=== PATIENT | female | born 1960 | race Caucasian/White ===

== ENCOUNTER 2018-06-03 11:05 | Outpatient (CLI) | payer OTHER ==
[~2018-06-03 11:05] MED LIST: IBUP-1985 PO
[2018-06-03 12:21] LABS: BASOPHILS % (AUTO) 0.4 % (0-1); EOSINOPHILS # (AUTO) 0.3 X10'3 (0-0.9); EOSINOPHILS % (AUTO) 5.5 % (0-6); HEMATOCRIT 38.8 % (35.0-45.0); HEMOGLOBIN 12.9 g/dl (12.0-16.0); LYMPHOCYTES # (AUTO) 1.6 X10'3 (1.1-4.8); LYMPHOCYTES % (AUTO) 28.8 % (21-51); MEAN CORPUSCULAR HEMOGLOBIN 27.9 PG (27.0-31.0); MEAN CORPUSCULAR HGB CONC 33.2 % (33.0-36.5); MEAN CORPUSCULAR VOLUME 84.2 FL (78-98); MEAN PLATELET VOLUME 7.1 FL (7.4-10.4); MONOCYTES # (AUTO) 0.4 X10'3 (0-0.9); MONOCYTES % (AUTO) 7.8 % (2-12); NEUTROPHILS # (AUTO) 3.1 X10'3 (1.8-7.7); NEUTROPHILS % (AUTO) 57.5 % (42-75); PLATELET COUNT 298 X10'3 (140-440); RED BLOOD COUNT 4.61 X10'6 (4.20-5.60); RED CELL DISTRIBUTION WIDTH 12.5 % (11.5-14.5); WHITE BLOOD COUNT 5.4 X10'3 (4.5-11.0)
[2018-06-03 12:33] LABS: ALANINE AMINOTRANSFERASE 33 U/L (12-78); ALBUMIN 3.9 G/DL (3.4-5.0); ALBUMIN/GLOBULIN RATIO 1.1 (1.1-1.5); ALKALINE PHOSPHATASE 69 IU/L (46-116); ANION GAP 7 (8-16); ASPARTATE AMINO TRANSFERASE 21 U/L (10-37); BILIRUBIN,TOTAL 0.3 MG/DL (0.1-1.0); BLOOD UREA NITROGEN 17 MG/DL (7-18); BUN/CREATININE RATIO 19.8 (6.6-38.0); CALCIUM 9.9 MG/DL (8.5-10.1); CHLORIDE 103 MMOL/L (99-107); CREATININE 0.86 MG/DL (0.40-0.90); GLUCOSE 99 MG/DL (70-104); POTASSIUM 4.3 MMOL/L (3.5-5.1); SODIUM 141 MMOL/L (135-145); TOTAL CARBON DIOXIDE 30.8 MMOL/L (24-32); TOTAL PROTEIN 7.5 G/DL (6.4-8.2); eGFR 67 ML/MIN
[2018-06-03 12:36] LABS: CLARITY,URINE CLEAR (Clear); COLOR,URINE YELLOW (Yellow); GLUCOSE, URINE NEGATIVE (Neg); KETONES,URINE NEGATIVE (Neg); LEUKOCYTE ESTERASE ,URINE TRACE (Neg); NITRITES, URINE NEGATIVE (Neg); OCCULT BLOOD,URINE NEGATIVE (Neg); PROTEIN,URINE NEGATIVE (Neg); UA COLLECTION TYPE CLN CATCH MIDSTREAM; UROBILINOGEN,URINE 0.2 E.U/dL (0.2-1.0)
[2018-06-03 12:42] LABS: CHOL/HDL RATIO 4.3 (0.00-4.99); CHOLESTEROL 200 MG/DL (0-200); HDL CHOLESTEROL 46 MG/DL (35-60); LDL CHOLESTEROL 131 MG/DL (50-100); TRIGLYCERIDES 161 MG/DL (20-135)
[2018-06-03 12:43] LABS: BACTERIA,URINE FEW /HPF (Neg); RBC,URINE 0-2 /HPF (0-2); SQUAMOUS EPITHELIAL CELL,UR FEW /LPF (FEW); WBC,URINE 0-4 /HPF (0-4)
== END 2018-06-03 23:59 | disposition home or self-care (01) ==
LOC: LAB 11:05
PROVIDERS: ATTEND Family Medicine
DX: E11.9 Type 2 diabetes mellitus without complications (principal); E03.9 Hypothyroidism, unspecified; I10 Essential (primary) hypertension; F32.9 Major depressive disorder, single episode, unspecified; F17.200 Nicotine dependence, unspecified, uncomplicated; Z76.89 Persons encountering health services in other specified circumstances; Z79.4 Long term (current) use of insulin
CPT/HCPCS: 36415; 80053; 80061; 81001; 84439; 84443; 85025

== ENCOUNTER 2018-08-23 15:28 | Emergency (ER) | payer OTHER ==
[~2018-08-23] VITALS: Ht 167.6 cm; Wt 88.2 kg
[2018-08-23] MEDS ORDERED: ketorolac trometh inj. 60 MG/2 ML VIAL IM ONE (15:50)
[2018-08-23] MEDS ORDERED: HYDROcodone/acetaminophen 10/325mg tab PO ONE (15:50)
[2018-08-23] MEDS ORDERED: orphenadrine citrate 60mg/2ml inj. IM ONE (15:50)
[2018-08-23] MEDS ORDERED: HYDR-4353 PO (15:53)
[2018-08-23] MEDS ORDERED: ORPH100T2 PO (15:53)
[2018-08-23 17:53] VITALS: BP 122/68
== END 2018-08-23 18:10 | disposition home or self-care (01) ==
LOC: ER 15:29
DX: M54.5 Low back pain (principal); F17.200 Nicotine dependence, unspecified, uncomplicated; Z79.899 Other long term (current) drug therapy; X50.9XXA Other and unspecified overexertion or strenuous movements or postures, initial encounter; Y93.89 Activity, other specified; Y92.89 Other specified places as the place of occurrence of the external cause; Y99.8 Other external cause status
CPT/HCPCS: 96372; 99284; J1885; J2360

== ENCOUNTER 2018-09-03 15:16 | Outpatient (CLI) | payer OTHER ==
[~2018-09-03 15:16] MED LIST changes: +HYDR-4353 PO; +ORPH100T2 PO
== END 2018-09-03 23:59 | disposition home or self-care (01) ==
LOC: LAB 15:16
PROVIDERS: ATTEND Family Medicine
DX: E03.9 Hypothyroidism, unspecified (principal); F17.200 Nicotine dependence, unspecified, uncomplicated
CPT/HCPCS: 36415; 84439; 84443

== ENCOUNTER 2018-11-25 08:38 | Outpatient (CLI) | payer OTHER ==
[~2018-11-25 08:38] MED LIST changes: -HYDR-4353 PO
== END 2018-11-25 23:59 | disposition home or self-care (01) ==
LOC: LAB 08:38
PROVIDERS: ATTEND Family Medicine
DX: E03.9 Hypothyroidism, unspecified (principal)
CPT/HCPCS: 36415; 84439; 84443

== ENCOUNTER → 2019-01-02 | Outpatient (CLI) | payer OTHER ==
[2019-01-02 14:45] LABS: BASOPHILS % (AUTO) 0.8 % (0-1); EOSINOPHILS # (AUTO) 0.2 X10'3 (0-0.9); EOSINOPHILS % (AUTO) 4.6 % (0-6); HEMATOCRIT 37.4 % (35.0-45.0); HEMOGLOBIN 12.5 g/dl (12.0-16.0); LYMPHOCYTES # (AUTO) 1.3 X10'3 (1.1-4.8); LYMPHOCYTES % (AUTO) 25.9 % (21-51); MEAN CORPUSCULAR HEMOGLOBIN 27.9 PG (27.0-31.0); MEAN CORPUSCULAR HGB CONC 33.3 g/dL (33.0-36.5); MEAN CORPUSCULAR VOLUME 83.7 FL (78-98); MEAN PLATELET VOLUME 7.5 FL (7.4-10.4); MONOCYTES # (AUTO) 0.4 X10'3 (0-0.9); MONOCYTES % (AUTO) 7.2 % (2-12); NEUTROPHILS # (AUTO) 3.2 X10'3 (1.8-7.7); NEUTROPHILS % (AUTO) 61.5 % (42-75); PLATELET COUNT 292 X10'3 (140-440); RED BLOOD COUNT 4.47 X10'6 (4.20-5.60); WHITE BLOOD COUNT 5.1 X10'3 (4.5-11.0)
[2019-01-02 15:12] LABS: ALANINE AMINOTRANSFERASE 36 U/L (12-78); ALBUMIN 3.8 G/DL (3.4-5.0); ALBUMIN/GLOBULIN RATIO 1.1 (1.1-1.5); ALKALINE PHOSPHATASE 61 IU/L (46-116); ANION GAP 7 (8-16); ASPARTATE AMINO TRANSFERASE 18 U/L (10-37); BILIRUBIN,TOTAL 0.2 MG/DL (0.1-1.0); BLOOD UREA NITROGEN 16 MG/DL (7-18); BUN/CREATININE RATIO 18.6 (6.6-38.0); CALCIUM 9.6 MG/DL (8.5-10.1); CHLORIDE 106 MMOL/L (99-107); CHOL/HDL RATIO 3.2 (0.00-4.99); CHOLESTEROL 143 MG/DL (0-200); CREATININE 0.86 MG/DL (0.40-0.90); GLUCOSE 91 MG/DL (70-104); HDL CHOLESTEROL 45 MG/DL (35-60); LDL CHOLESTEROL 81 MG/DL (50-100); POTASSIUM 4.4 MMOL/L (3.5-5.1); SODIUM 142 MMOL/L (135-145); TOTAL CARBON DIOXIDE 28.9 MMOL/L (24-32); TOTAL PROTEIN 7.3 G/DL (6.4-8.2); TRIGLYCERIDES 138 MG/DL (20-135); eGFR 67 ML/MIN
[2019-01-04 08:19] LABS: MICROALB/CRT, RATIO 5.4 mg/g creat (0.0-30.0)
== END | disposition home or self-care (01) ==
LOC: RAD 13:03
PROVIDERS: ATTEND Family Medicine
DX: M47.812 Spondylosis without myelopathy or radiculopathy, cervical region (principal); M48.061 Spinal stenosis, lumbar region without neurogenic claudication; M51.36 Other intervertebral disc degeneration, lumbar region; M41.86 Other forms of scoliosis, lumbar region; M54.41 Lumbago with sciatica, right side; M25.511 Pain in right shoulder; I10 Essential (primary) hypertension; E11.9 Type 2 diabetes mellitus without complications; E78.5 Hyperlipidemia, unspecified; F17.210 Nicotine dependence, cigarettes, uncomplicated; Z91.89 Other specified personal risk factors, not elsewhere classified; Z79.4 Long term (current) use of insulin
CPT/HCPCS: 36415; 72050; 72110; 73030; 80053; 80061; 82043; 82570; 84436; 84443; 85025

== ENCOUNTER 2019-05-15 20:08 | Emergency (ER) | payer OTHER ==
[~2019-05-15] VITALS: Ht 167.6 cm; Wt 82.0 kg
[2019-05-15 20:11] VITALS: BP 163/101
== END 2019-05-15 20:49 | disposition home or self-care (01) ==
LOC: EEVIPCON 20:08 → ER 20:08
DX: S09.90XA Unspecified injury of head, initial encounter (principal); G89.29 Other chronic pain; Z98.890 Other specified postprocedural states; Z79.899 Other long term (current) drug therapy; W22.8XXA Striking against or struck by other objects, initial encounter; Y93.89 Activity, other specified; Y92.89 Other specified places as the place of occurrence of the external cause; Y99.8 Other external cause status
CPT/HCPCS: 99284

== ENCOUNTER 2019-06-17 13:12 | Outpatient (CLI) | payer OTHER | END 2019-06-17 23:59 | disposition home or self-care (01) | LOC: RAD 13:12 | PROVIDERS: ATTEND Family Medicine | DX: S79.912A Unspecified injury of left hip, initial encounter (principal); Z96.643 Presence of artificial hip joint, bilateral; Z87.891 Personal history of nicotine dependence; W19.XXXA Unspecified fall, initial encounter; Y93.89 Activity, other specified; Y92.89 Other specified places as the place of occurrence of the external cause; Y99.8 Other external cause status | CPT/HCPCS: 73721 ==

== ENCOUNTER 2019-10-06 10:52 | Outpatient (CLI) | payer OTHER | END 2019-10-06 23:59 | disposition home or self-care (01) | LOC: RAD 10:52 | PROVIDERS: ATTEND Family Medicine | DX: J06.9 Acute upper respiratory infection, unspecified (principal) | CPT/HCPCS: 71046 ==

== ENCOUNTER 2020-01-27 12:21 | Outpatient (CLI) | payer BC | END 2020-01-27 23:59 | disposition home or self-care (01) | LOC: RAD 12:21 | PROVIDERS: ATTEND Family Medicine | DX: S46.811A Strain of other muscles, fascia and tendons at shoulder and upper arm level, right arm, initial encounter (principal); S43.081A Other subluxation of right shoulder joint, initial encounter; X58.XXXA Exposure to other specified factors, initial encounter; Y93.89 Activity, other specified; Y92.89 Other specified places as the place of occurrence of the external cause; Y99.8 Other external cause status | CPT/HCPCS: 73221 ==

== ENCOUNTER 2020-02-23 09:47 | Outpatient (CLI) | payer BC | END 2020-02-23 23:59 | disposition home or self-care (01) | LOC: LAB 09:47 | PROVIDERS: ATTEND Family Medicine | DX: R19.7 Diarrhea, unspecified (principal) | CPT/HCPCS: 87045; 87046 ==

== ENCOUNTER 2020-02-27 20:43 | Emergency (ER) | payer BC ==
[~2020-02-27] VITALS: Ht 167.6 cm; Wt 86.4 kg
[2020-02-27] MEDS ORDERED: DICY10CA88 PO (23:03)
[2020-02-27] MEDS ORDERED: LOPE2CAP PO (23:03)
[2020-02-27 23:12] VITALS: BP 125/75
== END 2020-02-27 23:27 | disposition home or self-care (01) ==
LOC: EEVIPCON 20:43 → ER 20:43
DX: R19.7 Diarrhea, unspecified (principal); R10.13 Epigastric pain; G89.29 Other chronic pain; E11.9 Type 2 diabetes mellitus without complications; Z79.899 Other long term (current) drug therapy; Z98.890 Other specified postprocedural states
CPT/HCPCS: 99283; 99284

== ENCOUNTER 2020-04-12 09:21 | Outpatient (CLI) | payer BC ==
[~2020-04-12 09:21] MED LIST changes: +LOPE2CAP PO
[2020-04-12 10:45] LABS: BASOPHILS # (AUTO) 0.1 X10'3 (0-0.2); BASOPHILS % (AUTO) 0.9 % (0-1); EOSINOPHILS # (AUTO) 0.4 X10'3 (0-0.9); EOSINOPHILS % (AUTO) 7.3 % (0-6); HEMATOCRIT 36.6 % (35.0-45.0); HEMOGLOBIN 12.1 g/dl (12.0-16.0); LYMPHOCYTES # (AUTO) 2.3 X10'3 (1.1-4.8); MEAN CORPUSCULAR HGB CONC 33.1 g/dL (33.0-36.5); MEAN CORPUSCULAR VOLUME 84.5 FL (78-98); MEAN PLATELET VOLUME 7.3 FL (7.4-10.4); MONOCYTES # (AUTO) 0.6 X10'3 (0-0.9); MONOCYTES % (AUTO) 9.5 % (2-12); NEUTROPHILS # (AUTO) 2.6 X10'3 (1.8-7.7); NEUTROPHILS % (AUTO) 43.3 % (42-75); PLATELET COUNT 278 X10'3 (140-440); RED BLOOD COUNT 4.33 X10'6 (4.20-5.60); RED CELL DISTRIBUTION WIDTH 13.5 % (11.5-14.5); WHITE BLOOD COUNT 5.9 X10'3 (4.5-11.0)
[2020-04-12 11:06] LABS: CLARITY,URINE SLIGHTLY CLOUDY (Clear); COLOR,URINE YELLOW (Yellow); GLUCOSE, URINE NEGATIVE (Neg); KETONES,URINE NEGATIVE (Neg); LEUKOCYTE ESTERASE ,URINE SMALL (Neg); NITRITES, URINE NEGATIVE (Neg); OCCULT BLOOD,URINE NEGATIVE (Neg); PH,URINE 5.5 (4.8-8.0); PROTEIN,URINE NEGATIVE (Neg); UA COLLECTION TYPE CLN CATCH MIDSTREAM; UROBILINOGEN,URINE 0.2 E.U/dL (0.2-1.0)
[2020-04-12 11:17] LABS: ALANINE AMINOTRANSFERASE 33 U/L (12-78); ALBUMIN 3.8 G/DL (3.4-5.0); ALBUMIN/GLOBULIN RATIO 1.1 (1.1-1.5); ALKALINE PHOSPHATASE 45 IU/L (46-116); ANION GAP 6 (8-16); ASPARTATE AMINO TRANSFERASE 23 U/L (10-37); BILIRUBIN,TOTAL 0.2 MG/DL (0.1-1.0); BLOOD UREA NITROGEN 18 MG/DL (7-18); BUN/CREATININE RATIO 20.2 (6.6-38.0); CALCIUM 9.8 MG/DL (8.5-10.1); CHLORIDE 102 MMOL/L (99-107); CHOL/HDL RATIO 2.8 (0.00-4.99); CHOLESTEROL 121 MG/DL (0-200); CREATININE 0.89 MG/DL (0.40-0.90); GLUCOSE 79 MG/DL (70-104); HDL CHOLESTEROL 43 MG/DL (35-60); LDL CHOLESTEROL 59 MG/DL (50-100); SODIUM 139 MMOL/L (135-145); TOTAL CARBON DIOXIDE 30.6 MMOL/L (24-32); TOTAL PROTEIN 7.2 G/DL (6.4-8.2); TRIGLYCERIDES 185 MG/DL (20-135); eGFR 64 ML/MIN
[2020-04-12 11:27] LABS: MUCUS STRANDS FEW /LPF (Neg); SQUAMOUS EPITHELIAL CELL,UR FEW /LPF (FEW)
[2020-04-12 11:29] LABS: BACTERIA,URINE FEW /HPF (Neg); RBC,URINE 0-2 /HPF (0-2); TRANSITIONAL EPI CELLS,URINE FEW /HPF; WBC,URINE 0-4 /HPF (0-4)
== END 2020-04-12 23:59 | disposition home or self-care (01) ==
LOC: LAB 09:21
PROVIDERS: ATTEND Family Medicine
DX: I10 Essential (primary) hypertension (principal); E11.9 Type 2 diabetes mellitus without complications; E78.5 Hyperlipidemia, unspecified; E03.9 Hypothyroidism, unspecified; F32.9 Major depressive disorder, single episode, unspecified; F17.210 Nicotine dependence, cigarettes, uncomplicated; Z79.4 Long term (current) use of insulin; Z76.89 Persons encountering health services in other specified circumstances; Z91.89 Other specified personal risk factors, not elsewhere classified
CPT/HCPCS: 36415; 80053; 80061; 81001; 84439; 84443; 85025

== ENCOUNTER 2020-05-11 14:48 | Outpatient (CLI) | payer BC ==
[2020-05-11 15:51] LABS: RHEUM FACTOR QUAL REFLEX TITER NEGATIVE (Neg)
== END 2020-05-11 23:59 | disposition home or self-care (01) ==
LOC: LAB 14:48
PROVIDERS: ATTEND Family Medicine
DX: R53.83 Other fatigue (principal)
CPT/HCPCS: 36415; 85651; 86038; 86140; 86430

== ENCOUNTER 2020-10-13 12:48 | Emergency (ER) | payer BC, OTHER ==
[~2020-10-13] VITALS: Ht 167.6 cm; Wt 87.7 kg
[2020-10-13] MEDS ORDERED: normal saline 1000ml 1,000 ML IV ONE (14:05)
[2020-10-13] MEDS ORDERED: clindamycin 600mg/D5W 50ml 50 ML IV ONE (14:05)
[2020-10-13 14:22] VITALS: BP 113/68
[2020-10-13 14:33] LABS: BASOPHILS # (AUTO) 0.1 X10'3 (0-0.2); BASOPHILS % (AUTO) 0.5 % (0-1); EOSINOPHILS # (AUTO) 0.6 X10'3 (0-0.9); EOSINOPHILS % (AUTO) 4.7 % (0-6); HEMATOCRIT 35.8 % (35.0-45.0); HEMOGLOBIN 11.9 g/dl (12.0-16.0); LYMPHOCYTES # (AUTO) 1.8 X10'3 (1.1-4.8); LYMPHOCYTES % (AUTO) 15.2 % (21-51); MEAN CORPUSCULAR HEMOGLOBIN 27.7 PG (27.0-31.0); MEAN CORPUSCULAR HGB CONC 33.1 g/dL (33.0-36.5); MEAN CORPUSCULAR VOLUME 83.5 FL (78-98); MEAN PLATELET VOLUME 7.2 FL (7.4-10.4); MONOCYTES # (AUTO) 0.9 X10'3 (0-0.9); MONOCYTES % (AUTO) 7.4 % (2-12); NEUTROPHILS # (AUTO) 8.5 X10'3 (1.8-7.7); NEUTROPHILS % (AUTO) 72.2 % (42-75); PLATELET COUNT 334 X10'3 (140-440); RED BLOOD COUNT 4.29 X10'6 (4.20-5.60); RED CELL DISTRIBUTION WIDTH 12.3 % (11.5-14.5); WHITE BLOOD COUNT 11.8 X10'3 (4.5-11.0)
[2020-10-13 14:58] LABS: ALANINE AMINOTRANSFERASE 32 U/L (12-78); ALBUMIN 3.2 G/DL (3.4-5.0); ALBUMIN/GLOBULIN RATIO 0.8 (1.1-1.5); ALKALINE PHOSPHATASE 79 IU/L (46-116); ANION GAP 11 (8-16); ASPARTATE AMINO TRANSFERASE 16 U/L (10-37); BILIRUBIN,TOTAL 0.2 MG/DL (0.1-1.0); BLOOD UREA NITROGEN 21 MG/DL (7-18); BUN/CREATININE RATIO 22.6 (6.6-38.0); CALCIUM 9.5 MG/DL (8.5-10.1); CHLORIDE 96 MMOL/L (99-107); CREATININE 0.93 MG/DL (0.40-0.90); GLUCOSE 361 MG/DL (70-104); POTASSIUM 4.2 MMOL/L (3.5-5.1); SODIUM 134 MMOL/L (135-145); TOTAL CARBON DIOXIDE 27.3 MMOL/L (24-32); TOTAL PROTEIN 7.4 G/DL (6.4-8.2); eGFR 61 ML/MIN
[2020-10-13] MEDS ORDERED: insulin regular, human 10 units/0.1 ml syringe IV ONE (15:15)
[2020-10-13] MEDS ORDERED: CLIN150C8 PO (15:17)
== END 2020-10-13 15:33 | disposition home or self-care (01) ==
LOC: EEVIPCON 12:48 → ER 12:48
DX: L03.115 Cellulitis of right lower limb (principal); E11.9 Type 2 diabetes mellitus without complications; G89.29 Other chronic pain; Z98.890 Other specified postprocedural states; Z79.2 Long term (current) use of antibiotics; Z79.899 Other long term (current) drug therapy
CPT/HCPCS: 36415; 80053; 82948; 84145; 85025; 93971; 96365; 96375; 99284; J1815; J7030; J3490

== ENCOUNTER 2021-06-16 15:59 | Outpatient (CLI) | payer BC ==
[~2021-06-16 15:59] MED LIST changes: +CLIN150C8 PO
[2021-06-16 16:50] LABS: BASOPHILS % (AUTO) 0.5 % (0-1); EOSINOPHILS # (AUTO) 0.4 X10'3 (0-0.9); EOSINOPHILS % (AUTO) 5.5 % (0-6); HEMATOCRIT 38.1 % (35.0-45.0); HEMOGLOBIN 12.9 g/dl (12.0-16.0); LYMPHOCYTES # (AUTO) 2.2 X10'3 (1.1-4.8); LYMPHOCYTES % (AUTO) 31.7 % (21-51); MEAN CORPUSCULAR HEMOGLOBIN 27.8 PG (27.0-31.0); MEAN CORPUSCULAR VOLUME 81.8 FL (78-98); MEAN PLATELET VOLUME 7.2 FL (7.4-10.4); MONOCYTES # (AUTO) 0.6 X10'3 (0-0.9); MONOCYTES % (AUTO) 9.2 % (2-12); NEUTROPHILS # (AUTO) 3.7 X10'3 (1.8-7.7); NEUTROPHILS % (AUTO) 53.1 % (42-75); PLATELET COUNT 277 X10'3 (140-440); RED BLOOD COUNT 4.66 X10'6 (4.20-5.60); RED CELL DISTRIBUTION WIDTH 12.8 % (11.5-14.5); WHITE BLOOD COUNT 6.9 X10'3 (4.5-11.0)
[2021-06-16 16:57] LABS: CLARITY,URINE CLEAR (Clear); COLOR,URINE YELLOW (Yellow); GLUCOSE, URINE NEGATIVE (Neg); KETONES,URINE NEGATIVE (Neg); LEUKOCYTE ESTERASE ,URINE SMALL (Neg); NITRITES, URINE NEGATIVE (Neg); OCCULT BLOOD,URINE NEGATIVE (Neg); PH,URINE 5.5 (4.8-8.0); PROTEIN,URINE NEGATIVE (Neg); UA COLLECTION TYPE CLN CATCH MIDSTREAM; UROBILINOGEN,URINE 0.2 E.U/dL (0.2-1.0)
[2021-06-16 17:02] LABS: BACTERIA,URINE FEW /HPF (Neg); HYALINE CASTS 0-3 /LPF (NEGATIVE); MUCUS STRANDS NONE SEEN /LPF (Neg); RBC,URINE NONE SEEN /HPF (0-2); SQUAMOUS EPITHELIAL CELL,UR FEW /LPF (FEW); WBC,URINE 0-4 /HPF (0-4)
[2021-06-16 17:09] LABS: HEMOGLOBIN A1C 6.5 % (4.5-6.2)
[2021-06-16 17:13] LABS: ALANINE AMINOTRANSFERASE 34 U/L (12-78); ALBUMIN/GLOBULIN RATIO 1.1 (1.1-1.5); ALKALINE PHOSPHATASE 58 IU/L (46-116); ANION GAP 10 (8-16); ASPARTATE AMINO TRANSFERASE 22 U/L (10-37); BILIRUBIN,TOTAL 0.3 MG/DL (0.1-1.0); BLOOD UREA NITROGEN 25 MG/DL (7-18); BUN/CREATININE RATIO 22.5 (6.6-38.0); CALCIUM 9.5 MG/DL (8.5-10.1); CHLORIDE 103 MMOL/L (99-107); CHOL/HDL RATIO 2.9 (0.00-4.99); CHOLESTEROL 125 MG/DL (0-200); CREATININE 1.11 MG/DL (0.40-0.90); GLUCOSE 149 MG/DL (70-104); HDL CHOLESTEROL 43 MG/DL (35-60); LDL CHOLESTEROL 59 MG/DL (50-100); POTASSIUM 4.7 MMOL/L (3.5-5.1); SODIUM 139 MMOL/L (135-145); TOTAL PROTEIN 7.5 G/DL (6.4-8.2); TRIGLYCERIDES 211 MG/DL (20-135); eGFR 50 ML/MIN
[2021-06-19 09:50] LABS: MICROALB/CRT, RATIO <5 mg/g creat (0-29)
== END 2021-06-16 23:59 | disposition home or self-care (01) ==
LOC: LAB 15:59
PROVIDERS: ATTEND Family Medicine
DX: Z00.00 Encounter for general adult medical examination without abnormal findings (principal)
CPT/HCPCS: 36415; 80053; 80061; 81001; 82043; 82570; 83036; 84439; 84443; 85025; 87088

== ENCOUNTER 2021-07-12 08:43 | Outpatient (CLI) | payer BC | END 2021-07-12 23:59 | disposition home or self-care (01) | LOC: LAB 08:43 | PROVIDERS: ATTEND Family Medicine | DX: Z00.01 Encounter for general adult medical examination with abnormal findings (principal); E11.9 Type 2 diabetes mellitus without complications; E03.9 Hypothyroidism, unspecified | CPT/HCPCS: 36415; 82043; 82570; 84439; 84443 ==

== ENCOUNTER 2021-08-27 13:20 | Emergency (ER) | payer BC ==
[~2021-08-27] VITALS: Ht 162.6 cm; Wt 80.0 kg
[2021-08-27 13:59] VITALS: BP 114/69
[2021-08-27] MEDS ORDERED: LIDOcaine 1% 30ml preserv. free vial IJ ONE (15:55)
--- NOTE | 2021-08-27 17:20 | NUR ---
PT SEEN, DC AND TREATED BY PA
== END 2021-08-27 17:21 | disposition home or self-care (01) ==
LOC: ER 13:20
DX: M54.6 Pain in thoracic spine (principal); M62.830 Muscle spasm of back; E11.9 Type 2 diabetes mellitus without complications; G89.29 Other chronic pain; Z79.2 Long term (current) use of antibiotics; Z79.899 Other long term (current) drug therapy
CPT/HCPCS: 20552; 20553; 99284

== ENCOUNTER 2021-08-30 15:19 | Outpatient (CLI) | payer BC | END 2021-08-30 23:59 | disposition home or self-care (01) | LOC: RAD 15:19 | PROVIDERS: ATTEND Physician Assistant | DX: M41.84 Other forms of scoliosis, thoracic region (principal); M43.8X4 Other specified deforming dorsopathies, thoracic region | CPT/HCPCS: 72074 ==

== ENCOUNTER 2023-04-17 03:56 | Inpatient (IN) | payer MEDICARE, MEDICAID ==
[~2023-04-17] VITALS: Ht 165.1 cm; Wt 93.2 kg
[2023-04-17] VITALS (15 sets, daily range): BP systolic 109–132; BP diastolic 47–64; PULSE 94–102; RESP 12–20; TEMP 98–98.1; O2SAT 90–96
[~2023-04-17 03:56] MED LIST changes: +CLIN-214 PO; -CLIN150C8 PO; -ORPH100T2 PO; +ORPH100T4 PO
[2023-04-17] MEDS ORDERED: normal saline 1000ml 1,000 ML IV ONE ×2 (04:10→04:50)
[2023-04-17] MEDS ORDERED: ondansetron/PF 4mg/2ml inj IV ONE (04:10)
[2023-04-17] MEDS ORDERED: ketorolac trometh. 30mg/ml inj. IV ONE (04:10)
[2023-04-17] MEDS ORDERED: LEVO75TA7 PO (04:13)
[2023-04-17] MEDS ORDERED: DULA4.5P SQ (04:13)
[2023-04-17] MEDS ORDERED: METF-438 PO (04:13)
[2023-04-17] MEDS ORDERED: NOVLG SQ (04:13)
[2023-04-17] MEDS ORDERED: ONDA-103 PO (04:13)
[2023-04-17] MEDS ORDERED: DULO30CA52 PO (04:13)
[2023-04-17] MEDS ORDERED: MONT-40 PO (04:13)
[2023-04-17] MEDS ORDERED: DULO60CA65 PO (04:13)
[2023-04-17] MEDS ORDERED: MELO-102 PO (04:13)
[2023-04-17] MEDS ORDERED: EMPA25TA PO (04:13)
[2023-04-17] MEDS ORDERED: TRAZ-251 PO (04:13)
[2023-04-17] MEDS ORDERED: PANT20TA18 PO (04:13)
[2023-04-17] MEDS ORDERED: ATOR10TA70 PO (04:13)
[2023-04-17] MEDS ORDERED: LANTUS SQ (04:13)
[2023-04-17] MEDS ORDERED: LISI10TA27 PO (04:13)
[2023-04-17 04:29] LABS: BASOPHILS % (AUTO) 0.1 % (0-1); EOSINOPHILS # (AUTO) 0.1 X10'3 (0-0.9); EOSINOPHILS % (AUTO) 0.4 % (0-6); HEMATOCRIT 35.8 % (35.0-45.0); HEMOGLOBIN 11.5 g/dl (12.0-16.0); LYMPHOCYTES # (AUTO) 1.2 X10'3 (1.1-4.8); LYMPHOCYTES % (AUTO) 5.5 % (21-51); MEAN CORPUSCULAR HGB CONC 32.1 g/dL (33.0-36.5); MEAN CORPUSCULAR VOLUME 84.3 FL (78-98); MEAN PLATELET VOLUME 6.6 FL (7.4-10.4); MONOCYTES # (AUTO) 1.3 X10'3 (0-0.9); NEUTROPHILS # (AUTO) 18.7 X10'3 (1.8-7.7); PLATELET COUNT 370 X10'3 (140-440); RED BLOOD COUNT 4.25 X10'6 (4.20-5.60); RED CELL DISTRIBUTION WIDTH 13.7 % (11.5-14.5); WHITE BLOOD COUNT 21.3 X10'3 (4.5-11.0)
[2023-04-17 04:41] LABS: ALANINE AMINOTRANSFERASE 24 U/L (12-78); ALBUMIN/GLOBULIN RATIO 0.7 (1.1-1.5); ALKALINE PHOSPHATASE 71 IU/L (46-116); ANION GAP 11 (8-16); ASPARTATE AMINO TRANSFERASE 18 U/L (10-37); BILIRUBIN,TOTAL 0.5 MG/DL (0.1-1.0); BLOOD UREA NITROGEN 27 MG/DL (7-18); CALCIUM 9.6 MG/DL (8.5-10.1); CHLORIDE 92 MMOL/L (99-107); CREATININE 1.23 MG/DL (0.40-0.90); GLUCOSE 155 MG/DL (70-104); LIPASE < 50 U/L (73-393); SODIUM 129 MMOL/L (135-145); TOTAL CARBON DIOXIDE 25.6 MMOL/L (24-32); TOTAL PROTEIN 7.4 G/DL (6.4-8.2); eCRCL 41 ML/MIN; eGFR 44 ML/MIN
[2023-04-17] MEDS ORDERED: piperacillin/tazo 3.375gm/50ml 50 ML IV ONE (04:50)
[2023-04-17] MEDS ORDERED: bisacodyl 10mg suppository rectal RC PRN (05:00)
[2023-04-17] MEDS ORDERED: acetaminophen 325mg tablet PO PRN ×2 (05:00)
[2023-04-17] MEDS ORDERED: ondansetron 4mg rapidly disintigrating tab PO PRN (05:00)
[2023-04-17] MEDS ORDERED: diphenhydrAMINE 25mg capsule PO PRN (05:00)
[2023-04-17] MEDS ORDERED: HYDROcodone/acetaminophen 10/325mg tab PO PRN (05:00)
[2023-04-17] MEDS ORDERED: acetaminophen 650mg rectal suppository RC PRN (05:00)
[2023-04-17] MEDS ORDERED: morphine 2 MG/ML inj. syringe IV PRN ×2 (05:00→11:25)
[2023-04-17] MEDS ORDERED: diphenhydrAMINE 50 mg/ml inj IV PRN (05:00)
[2023-04-17] MEDS ORDERED: mag hydrox/Alum hydrox/simeth 30ml oral suspension PO PRN (05:00)
[2023-04-17] MEDS ORDERED: HYDROcodone/acetaminophen 5mg/325mg tablet PO PRN (05:00)
[2023-04-17] MEDS ORDERED: ondansetron/PF 4mg/2ml inj IV PRN ×2 (05:00→11:25)
[2023-04-17] MEDS ORDERED: magnesium hydroxide 30ml (MOM) UD suspension PO PRN (05:00)
[2023-04-17] MEDS ORDERED: dextrose 50%-water 50ml dispensing syringe IV PRN ×2 (05:05)
[2023-04-17] MEDS ORDERED: MESSAGE TO PHARMACY PO ONE (05:05)
[2023-04-17] MEDS ORDERED: glucagon, human recombinant 1mg kit SUBCUT PRN (05:05)
[2023-04-17] MEDS ORDERED: DEXTROSE 15 GM of carb/4 tabs (each vial/BOTTLE has 4 tablets) PO PRN ×2 (05:05)
[2023-04-17] MEDS: normal saline 1000ml 1,000 ML IV SCH ×3 (05:37→18:20)
[2023-04-17] MEDS: morphine 2 MG/ML inj. syringe IV PRN ×2 (05:37→12:01)
[2023-04-17 05:44] LABS: MAGNESIUM 2.4 MG/DL (1.5-2.4); PHOSPHORUS 2.5 MG/DL (2.3-4.5); PRO BRAIN NATRIURETIC PEPTIDE 374 PG/ML (0-125)
[2023-04-17 05:48] LABS: APTT 32 SECONDS (22-32); PROTHROMBIN TIME 10.8 SECONDS (9.0-12.0)
[2023-04-17] MEDS: HYDROmorphone inj. 0.5 MG/0.5 ML DISP.SYRIN IV PRN ×3 (06:14→14:10)
[2023-04-17 06:29] LABS: BILIRUBIN,URINE MODERATE (Neg); CLARITY,URINE SLIGHTLY CLOUDY (Clear); COLOR,URINE YELLOW (Yellow); GLUCOSE, URINE >=1000 mg/dl (Neg); KETONES,URINE >=80 mg/dl (Neg); LEUKOCYTE ESTERASE ,URINE NEGATIVE (Neg); NITRITES, URINE NEGATIVE (Neg); OCCULT BLOOD,URINE MODERATE (Neg); PH,URINE 5.5 (4.8-8.0); PROTEIN,URINE 100 mg/dl (Neg); UROBILINOGEN,URINE 0.2 E.U/dL (0.2-1.0)
[2023-04-17 06:52] LABS: UA COLLECTION TYPE CLN CATCH MIDSTREAM
[2023-04-17 06:54] LABS: SQUAMOUS EPITHELIAL CELL,UR MODERATE /LPF (FEW)
[2023-04-17 06:55] LABS: TRANSITIONAL EPI CELLS,URINE FEW /HPF
[2023-04-17 06:56] LABS: WBC CLUMPS,URINE FEW /HPF (NEGATIVE)
[2023-04-17 07:00] LABS: AMORPHOUS URATES 1+; BACTERIA,URINE FEW /HPF (Neg)
--- NOTE | 2023-04-17 07:09 | NUR ---
SURGEON DR. DE ANDA AT BEDSIDE DISCUSSING SURGERY WITH PT AND PTS SPOUSE.
[2023-04-17] MEDS ORDERED: docusate sod 100mg capsule PO SCH (08:00)
[2023-04-17] MEDS: pantoprazole 40MG/NS 100ML BAG 100 ML IV SCH (08:20)
[2023-04-17 09:14] LABS: HEMOGLOBIN A1C 6.2 % (4.5-6.2)
[2023-04-17] MEDS ORDERED: meperidine/PF 25mg/ml syringe IV PRN ×3 (11:25)
[2023-04-17] MEDS ORDERED: proCHLORperazine 10 MG/2 ml inj IV PRN (11:25)
[2023-04-17] MEDS ORDERED: ringers solution, lacted 1,000 ML IV SCH (11:25)
[2023-04-17] MEDS ORDERED: morphine 4 MG/ML inj SYRINge IV PRN (11:25)
[2023-04-17] MEDS: piperacillin/tazo 4.5gm/100ml 100 ML IV SCH ×2 (12:08→21:00)
[2023-04-17] MEDS ORDERED: traZODone 50mg tablet PO PRN (12:40)
[2023-04-17] MEDS ORDERED: dexamethasone sod phosphate 10mg/ml inj ONE (16:30)
[2023-04-17] MEDS ORDERED: ondansetron/PF 4mg/2ml inj ONE (16:30)
[2023-04-17] MEDS ORDERED: sevoflurane 250ml liquid IH ONE (16:30)
[2023-04-17] MEDS ORDERED: midazolam 1 mg/ML 2ml injection ONE (16:41)
[2023-04-17] MEDS ORDERED: fentaNYL /PF 50mcg/ml 5ml ampule ONE (16:41)
[2023-04-17] MEDS ORDERED: propofol inj 20 ML IV ONE (16:53)
[2023-04-17] MEDS ORDERED: LIDOcaine 2% (20mg/ml) 5ml vial ONE (16:53)
[2023-04-17] MEDS ORDERED: rocuronium 10mg/ml inj IV ONE (16:53)
[2023-04-17] MEDS ORDERED: LIDOcaine 1% 30ml preserv. free vial IJ ONE (16:59)
[2023-04-17] MEDS ORDERED: BUPIVAcaine/PF 2.5 mg/ml (0.25%) 30ml vial IJ ONE (16:59)
[2023-04-17] MEDS ORDERED: BUPIVAcaine/PF 2.5 mg/ml (0.25%) 30ml vial ONE (17:01)
[2023-04-17] MEDS ORDERED: LIDOcaine 1% 30ml preserv. free vial ONE (17:01)
[2023-04-17] MEDS ORDERED: BUPIVACAINE liposomal/PF 13.3 MG/ML vial IM ONE ×2 (18:09→19:00)
[2023-04-17] MEDS ORDERED: BUPIVAcaine/PF 5 mg/ml 10ml ONE (18:09)
[2023-04-17] MEDS ORDERED: acetaminophen 1,000mg/100ml IV 100 ML IV ONE (18:12)
--- NOTE | 2023-04-17 19:15 | NUR ---
Received from OR via HOSPITAL BED, accompanied by Anesthesiologist and report given by [facility] Anesthesiologist. PATIENT STILL SEDATED WITH ORAL AIRWAY, NO S/S OF PAIN, V/S WNL, SCD ON , PIV 20G RIGHT FOREARM, WOUNDVAC AT 125 MMHG C/D/I TO ABDOMEN. F/C DRAINING CLEAR YELLOW URINE. RIGHT NG TUBE CONNECTED TO LOW INTERMITTENT WALL SUCTION. LEFT LOWER QUADRANT COLOSTOMY. STOMA SITE IS MOIST AND PINK. WILL KEEP MONITORING. Addendum: 04/17/23 at 1931 by Santiago Cooley RN Amended: Links added.
[2023-04-17] MEDS ORDERED: normal saline 1000ml 1,000 ML IV SCH (19:30)
[2023-04-17] MEDS ORDERED: morphine/NS PCA 1mg/ml 50ml 50 ML IV SCH (19:30)
[2023-04-17] MEDS ORDERED: naloxone 0.4 mg/ml inj IV PRN (19:30)
--- NOTE | 2023-04-17 19:45 | NUR ---
Patient in room ORTHO 4011. I have received report from Luis Felipe SECOND MATE, and had the opportunity to ask questions and assume patient care.
[2023-04-17] MEDS: HYDROmorph/NS 0.2 mg/ml PCA 100 ML IV SCH ×3 (19:52→23:00)
[2023-04-17] MEDS: docusate sod 100mg capsule PO SCH (20:00)
[2023-04-17] MEDS: sennosides/docusate sodium tablet PO SCH (20:00)
--- NOTE | 2023-04-17 20:05 | NUR ---
PATIENT HAS MET ALL CRITERIA FOR TRANSFER TO ORTHO FLOOR. VSS. DRESSINGS INTACT. BED LOW, CALL LIGHT PRESENT AND 2 RAILS UP. RN PRESENT TO ACCEPT CARE OF PATIENT AND REPORT HAS BEEN CALLED. ALL QUESTIONS ANSWERED TO ACCEPTING RN. Addendum: 04/17/23 at 2007 by Santiago Cooley RN Amended: Links added.
--- NOTE | 2023-04-17 20:05 | NUR ---
pt. to floor via hospital bed accompanied by staff. pt. in bed, call light in reach, bed in low position, side rails upx2, NGT hooked to low continuous suction. pt. in stable condition. no complaints at this time. Will continue to monitor.
[2023-04-17] MEDS ORDERED: temazepam 15mg capsule PO PRN (21:00)
[2023-04-18] MEDS: normal saline 1000ml 1,000 ML IV SCH ×3 (01:00→14:20)
[2023-04-18] MEDS: HYDROmorph/NS 0.2 mg/ml PCA 100 ML IV SCH ×12 (01:00→23:00)
[2023-04-18 01:48] VITALS: BP 123/71; PULSE 97; RESP 16; TEMP 98.2; O2SAT 95
[2023-04-18] MEDS: piperacillin/tazo 4.5gm/100ml 100 ML IV SCH ×3 (03:46→20:14)
[2023-04-18] MEDS ORDERED: diphenhydrAMINE 50 mg/ml inj IV PRN (04:00)
--- NOTE | 2023-04-18 05:49 | NUR ---
moved pt to 4024A. Notified tele.
--- NOTE | 2023-04-18 06:16 | NUR ---
Problems reprioritized. Patient report given, questions answered & plan of care reviewed with MARLEY Naik.
[2023-04-18 06:41] LABS: BASOPHILS % (AUTO) 0 % (0-1); EOSINOPHILS % (AUTO) 0 % (0-6); HEMATOCRIT 37.7 % (35.0-45.0); HEMOGLOBIN 12.2 g/dl (12.0-16.0); LYMPHOCYTES # (AUTO) 0.6 X10'3 (1.1-4.8); LYMPHOCYTES % (AUTO) 4.3 % (21-51); MEAN CORPUSCULAR HEMOGLOBIN 27.8 PG (27.0-31.0); MEAN CORPUSCULAR HGB CONC 32.2 g/dL (33.0-36.5); MEAN CORPUSCULAR VOLUME 86.4 FL (78-98); MEAN PLATELET VOLUME 6.5 FL (7.4-10.4); NEUTROPHILS # (AUTO) 12.2 X10'3 (1.8-7.7); NEUTROPHILS % (AUTO) 88.7 % (42-75); PLATELET COUNT 398 X10'3 (140-440); RED BLOOD COUNT 4.37 X10'6 (4.20-5.60); RED CELL DISTRIBUTION WIDTH 14.2 % (11.5-14.5); WHITE BLOOD COUNT 13.7 X10'3 (4.5-11.0)
[2023-04-18 06:59] LABS: ALANINE AMINOTRANSFERASE 19 U/L (12-78); ALBUMIN/GLOBULIN RATIO 0.5 (1.1-1.5); ALKALINE PHOSPHATASE 55 IU/L (46-116); ANION GAP 19 (8-16); ASPARTATE AMINO TRANSFERASE 19 U/L (10-37); BILIRUBIN,TOTAL 0.6 MG/DL (0.1-1.0); BLOOD UREA NITROGEN 23 MG/DL (7-18); BUN/CREATININE RATIO 20.2 (10.0-20.0); CALCIUM 8.1 MG/DL (8.5-10.1); CHLORIDE 102 MMOL/L (99-107); CHOL/HDL RATIO 6.3 (0.00-4.99); CHOLESTEROL 75 MG/DL (0-200); CREATININE 1.14 MG/DL (0.40-0.90); GLUCOSE 157 MG/DL (70-104); HDL CHOLESTEROL 12 MG/DL (35-60); LDL CHOLESTEROL 23 MG/DL (50-100); POTASSIUM 4.3 MMOL/L (3.5-5.1); SODIUM 136 MMOL/L (135-145); TOTAL CARBON DIOXIDE 15.4 MMOL/L (24-32); TOTAL PROTEIN 5.8 G/DL (6.4-8.2); TRIGLYCERIDES 119 MG/DL (20-135); eCRCL 44 ML/MIN; eGFR 48 ML/MIN
[2023-04-18 07:00] VITALS: BP 130/85; PULSE 95; RESP 16; O2SAT 96
[2023-04-18] MEDS ORDERED: pantoprazole 40mg Tablet.DR PO SCH (08:00)
[2023-04-18] MEDS: sennosides/docusate sodium tablet PO SCH ×2 (09:24→20:14)
[2023-04-18] MEDS: montelukast 10mg tablet PO SCH (09:24)
[2023-04-18] MEDS: levoTHYROXINE 75mcg tablet PO SCH (09:24)
[2023-04-18] MEDS: duloxetine 30mg CAPSULE.DR PO SCH ×2 (09:25)
[2023-04-18] MEDS: lisinopril 10 MG tablet PO SCH (09:30)
[2023-04-18] MEDS: atorvastatin 10mg tablet PO SCH (09:30)
[2023-04-18] MEDS: docusate sod 100mg capsule PO SCH ×2 (09:41→20:14)
[2023-04-18 09:52] LABS: TOTAL CELLS COUNTED 100
[2023-04-18 10:00] VITALS: BP 130/77; PULSE 96; RESP 16; TEMP 98.4; O2SAT 94
[2023-04-18 10:01] LABS: PLATELET ESTIMATE NORMAL
[2023-04-18] MEDS: EMPAGLIFLOZIN 25 MG TABLET PO SCH (12:20)
[2023-04-18] MEDS: pantoprazole 40MG/NS 100ML BAG 100 ML IV SCH (12:20)
[2023-04-18] MEDS: HYDROmorphone inj. 0.5 MG/0.5 ML DISP.SYRIN IV PRN (13:48)
[2023-04-18 18:00] VITALS: BP 107/42; PULSE 95; RESP 12; O2SAT 93
[2023-04-18] MEDS: insulin Lispro (HumaLOG) vial - multi-dose SQ SCH (18:41)
--- NOTE | 2023-04-18 18:59 | NUR ---
Bailey Dc 1500hrs. patient hasnt voided at this time. bladder scanned 137mls observed. Ambulated 300ft around floors. minimal out put from wound vac. report given to candice ROACH
[2023-04-18] MEDS: enoxaparin 40mg/0.4ml syringe SUBCUT SCH (20:15)
[2023-04-18 21:00] VITALS: O2SAT 96
[2023-04-18 22:00] VITALS: BP 117/64; PULSE 104; RESP 13; TEMP 98.6; O2SAT 94
[2023-04-19] MEDS: HYDROmorph/NS 0.2 mg/ml PCA 100 ML IV SCH ×12 (01:00→23:00)
--- NOTE | 2023-04-19 02:24 | NUR ---
I have received report for Paloma ROACH and assumed care of pt at approx 0220. Pt is resting in bed with eyes closed, breathing even and unlabored. NG tube in place and on low cont suction. Wound vac currently running at 125 w/o issue. Will continue to monitor
[2023-04-19] MEDS: HYDROmorphone inj. 0.5 MG/0.5 ML DISP.SYRIN IV PRN (05:08)
[2023-04-19] MEDS: piperacillin/tazo 4.5gm/100ml 100 ML IV SCH ×3 (05:08→20:06)
[2023-04-19 06:00] VITALS: BP 139/69; PULSE 100; RESP 14; TEMP 97.2; O2SAT 93
[2023-04-19 06:16] LABS: BASOPHILS % (AUTO) 0.1 % (0-1); EOSINOPHILS % (AUTO) 0 % (0-6); HEMATOCRIT 35.2 % (35.0-45.0); HEMOGLOBIN 11.3 g/dl (12.0-16.0); LYMPHOCYTES # (AUTO) 0.5 X10'3 (1.1-4.8); LYMPHOCYTES % (AUTO) 3.9 % (21-51); MEAN CORPUSCULAR HEMOGLOBIN 27.6 PG (27.0-31.0); MEAN CORPUSCULAR HGB CONC 32.1 g/dL (33.0-36.5); MEAN CORPUSCULAR VOLUME 86.1 FL (78-98); MEAN PLATELET VOLUME 6.5 FL (7.4-10.4); MONOCYTES # (AUTO) 1.5 X10'3 (0-0.9); MONOCYTES % (AUTO) 10.8 % (2-12); NEUTROPHILS # (AUTO) 11.9 X10'3 (1.8-7.7); NEUTROPHILS % (AUTO) 85.2 % (42-75); PLATELET COUNT 506 X10'3 (140-440); RED BLOOD COUNT 4.08 X10'6 (4.20-5.60); RED CELL DISTRIBUTION WIDTH 14.4 % (11.5-14.5); WHITE BLOOD COUNT 13.9 X10'3 (4.5-11.0)
[2023-04-19 06:27] LABS: ALANINE AMINOTRANSFERASE 23 U/L (12-78); ALBUMIN/GLOBULIN RATIO 0.4 (1.1-1.5); ALKALINE PHOSPHATASE 65 IU/L (46-116); ANION GAP 13 (8-16); ASPARTATE AMINO TRANSFERASE 28 U/L (10-37); BILIRUBIN,TOTAL 0.3 MG/DL (0.1-1.0); BLOOD UREA NITROGEN 32 MG/DL (7-18); BUN/CREATININE RATIO 25.8 (10.0-20.0); CALCIUM 8.8 MG/DL (8.5-10.1); CHLORIDE 105 MMOL/L (99-107); CREATININE 1.24 MG/DL (0.40-0.90); GLUCOSE 189 MG/DL (70-104); POTASSIUM 4.3 MMOL/L (3.5-5.1); SODIUM 139 MMOL/L (135-145); TOTAL PROTEIN 6.5 G/DL (6.4-8.2); eCRCL 41 ML/MIN; eGFR 43 ML/MIN
--- NOTE | 2023-04-19 06:33 | NUR ---
Problems reprioritized. Patient report given, questions answered & plan of care reviewed with Becky ROACH.
[2023-04-19 06:51] LABS: TOTAL CELLS COUNTED 100
[2023-04-19 06:52] LABS: PLATELET ESTIMATE INCREASED
--- NOTE | 2023-04-19 06:53 | NUR ---
Patient in room ORTHO 4024. I have received report from Salty and had the opportunity to ask questions and assume patient care.
[2023-04-19] MEDS: normal saline 1000ml 1,000 ML IV SCH ×2 (07:30→20:50)
[2023-04-19] MEDS: duloxetine 30mg CAPSULE.DR PO SCH ×2 (08:00→09:10)
[2023-04-19 08:50] VITALS: RESP 14; O2SAT 93
[2023-04-19] MEDS: pantoprazole 40MG/NS 100ML BAG 100 ML IV SCH (09:05)
--- NOTE | 2023-04-19 09:05 | NUR ---
WOUND VAC EDUCATION PROVIDED BY WOUND CARE 1. Patient instructed to call the Wound Center or their Home Health Agency immediately if: * They notice a change in the color or amount of the fluid in the canister. * Their wound looks more red than usual or has a foul smell. * The skin around their wound looks reddened or irritated. * The dressing feels loose or appears to be loose. * They experience any increase or changes in their pain. * The alarm will not turn off. 2. Patient instructed that they should not be disconnected from suction for more than 2 hours at a time. * If they are not able to get the suction back on, they need to remove the dressing and take all of the foam out of the wound. * Then moisten sterile gauze with normal saline and place on/in the wound. * Change the dressing once a day until arrangements have been made to replace the wound vac dressing. 3. Patient instructed to turn the wound vac machine OFF and call 911 or go to the ED immediately if their canister fills rapidly with blood. 4. If any of these occur while in the hospital tell a nurse immediately. Addendum: 04/19/23 at 0906 by Stephanie Stanton LVN Amended: Links added.
[2023-04-19] MEDS: atorvastatin 10mg tablet PO SCH (09:10)
[2023-04-19] MEDS: EMPAGLIFLOZIN 25 MG TABLET PO SCH (09:10)
[2023-04-19] MEDS: docusate sod 100mg capsule PO SCH ×2 (09:10→20:06)
[2023-04-19] MEDS: sennosides/docusate sodium tablet PO SCH ×2 (09:11→20:06)
[2023-04-19] MEDS: lisinopril 10 MG tablet PO SCH (09:11)
[2023-04-19] MEDS: montelukast 10mg tablet PO SCH (09:11)
[2023-04-19] MEDS: levoTHYROXINE 75mcg tablet PO SCH (09:11)
[2023-04-19 10:00] VITALS: BP 144/72; PULSE 95; RESP 18; TEMP 98.5; O2SAT 91
[2023-04-19 14:10] LABS: THYROID STIMULATING HORMONE 4.59 ulU/ml (0.34-4.50)
--- NOTE | 2023-04-19 15:14 | NUR ---
OSTOMY FACTS: Almost everyone has know of, or met, businessmen, entertainers, athletes, and people from all walks of life who have an ostomy. Ostomates (a person that has an ostomy) can ski, ride horses, bowl, and get healthy exercise in countless ways. Your usual activities of daily living can be resumed as soon as you are able. Gradually you will be able to wear the clothes worn before surgery. With modern pouches, nothing is noticeable under your clothing. It may be difficult at first to believe that an intimate relationship can be possible when one's body has been disfigured by surgery. This is not true. Love, fortunately, is not easily destroyed when it is based on genuine appreciation of a person as a thinking, feeling, reacting human being. AN OSTOMY IS NOT AN IMPAIRMENT!! DEFINITIONS: 1.OSTOMY: An opening that is created by a surgical procedure. The opening is called a "stoma". 2.STOMA: A surgical opening in the abdomen (belly) where intestine is brought through the abdominal wall and connected at the skin level. A stoma is shiny, wet and at first is dark purple but eventually turns pink, similar to the inside lining of your mouth. 3.COLON: A portion of the large bowel. 4.COLOSTOMY: A fecal diversion with an opening, (stoma) created anywhere along the colon. Making a connection between the colon and the abdominal wall. 5.ILLEOSTOMY: A fecal diversion with an opening, (stoma) created in the small intestine. Making a connection between the small intestine and the abdominal wall. 6.UROSTOMY: A urinary diversion with the ureters connected to a segment of the small bowel and one end is brought out and connected to the abdominal wall, creating a stoma. SHAPES and SIZES: "The stoma is usually round or oval. "It is anywhere from a dime to half dollar in size. "A stoma reaches its permanent size 6-8 weeks after surgery. PRODUCTS: 1.POUCH or APPLIANCE: An external device to contain stool or urine output and protect the skin around the stoma. It can be a one piece pouch or two pieces (a pouch and a wafer). 2.BARRIER: Substance that is used to protect the skin around the stoma from drainage and adhesive. 3.SKIN PREP or SEALANT: Product applied to the skin to reduce injury from moisture, drainage, or repeated pouch removal. Available in spray or wipes. 4.CLOSURE or CLAMP: A device used to close the bottom of a drainable pouch. 5.BRIDGE or ARTURO: A piece of plastic placed under a loop of bowel on the skins surface, to secure the bowel in place while the skin heals. POUCH CHANGE PROCEEDURE: 1.Assemble all the supplies "1 or 2 piece appliance "Ostomy paste (if needed) "Ostomy powder (if needed) "Skin prep wipes ( not recommended with coloplast products) "Moist wash cloth or cotton balls 2.Remove plastic center and paper backing from pouch. If pouch or wafer is not precut, use the sizing guide, or plastic backing from pouch to make a pattern. Do this by placing the paper over the stoma and trace it, or draw a pattern. Cut the wafer to fit and set it aside. 3.Remove old pouch by lifting up on tape while pressing skin down away from the tape. If there is a clip on your pouch, remove it and save it. 4.Clean skin or stoma with moistened wash cloth or cotton balls. Place a clean cotton ball over stoma hole to catch any drainage. Let skin dry. 5.For grooves or uneven areas in the skin- apply ostomy paste and sprinkle with ostomy powder, then gently shape the past so the area around the stoma is smooth and as flat as possible. Wipe off or blow away excess. Blot powder with skin prep wipe (DO NOT wipe powder). Let dry until no longer sticky. 6.For irritated or reddened skin- sprinkle ostomy powder on red or irritated area. Wipe off or blow away excess. Blot powder with skin prep wipe (DO NOT wipe powder). Let dry until no longer sticky. 7.Apply skin prep wipe to skin to which the pouch and tape will adhere. Let dry until no longer sticky. 8.If you have a one piece appliance- apply pouch so it is centered around the stoma. No skin should be exposed to stool. All skin should be covered by paste or pouch. 9.If you have a two piece appliance- Apply the wafer as described above, then snap or stick pouch onto wafer. Check to make sure wafer and pouch are securely connected. 10.Place clip on bottom of pouch. 11.Empty pouch when 1/3 full. OSTOMY SKIN CARE: "Good health care and nutrition are essential for healthy skin. "Usually a correct pouch size will prevent skin breakdown. "Use warm water and soap for skin cleansing. "Do not use creams or oil based products on skin around the stoma. This will prevent the appliance from sticking. "Use skin prep around the stoma. IT CAN TAKE 24 HOURS TO SEVERAL DAYS FOR SKIN TO HEAL. IF IT IS NOT RESOLVING, OR GETTING WORSE, CALL YOUR PRIMARY CARE DOCTOR. Addendum: 04/19/23 at 1515 by Kathe Concepcion RN Amended: Links added.
[2023-04-19 16:43] LABS: FREE T4 (FREE THYROXINE) 1.08 NG/DL (0.73-1.40)
--- NOTE | 2023-04-19 17:14 | NUR ---
Patient declined insulin administration at breakfast and lunchtimes.
[2023-04-19 18:00] VITALS: BP 126/63; PULSE 78; RESP 16; TEMP 97.7; O2SAT 94
--- NOTE | 2023-04-19 18:43 | NUR ---
Problems reprioritized. Patient report given, questions answered & plan of care reviewed with Maureen.
[2023-04-19 20:00] VITALS: RESP 16; O2SAT 94
[2023-04-19] MEDS: enoxaparin 40mg/0.4ml syringe SUBCUT SCH (20:07)
--- NOTE | 2023-04-19 20:42 | NUR ---
Patient left during shift change, wheeled down in wheelchair by URI mojica to bean picker. Pt was given all her belonging and all her medications with some to bean picker from the pharmacy. Nothing for oncoming nurse to do as discharge instructions given by víctor and IV was removed by [facility] nurse as well. Addendum: 04/19/23 at 2045 by Maureen Mckeon RN Amended: Links added. Addendum: 04/19/23 at 210 by Maureen Mckeon RN Disregard discharge note. Wrong patient.
--- NOTE | 2023-04-19 20:45 | NUR ---
Disregard note timed 2041, entered in error on wrong pt.
[2023-04-19 22:00] VITALS: BP 143/70; PULSE 91; RESP 16; TEMP 97.9; O2SAT 95
[2023-04-20] VITALS (7 sets, daily range): BP systolic 119–139; BP diastolic 51–78; PULSE 72–96; RESP 16–18; TEMP 97.5–98; O2SAT 96–98
[2023-04-20] MEDS: HYDROmorph/NS 0.2 mg/ml PCA 100 ML IV SCH ×12 (01:00→23:00)
[2023-04-20] MEDS: piperacillin/tazo 4.5gm/100ml 100 ML IV SCH ×3 (04:46→21:00)
[2023-04-20] MEDS: CADD PCA waste documentation MC SCH (05:30)
--- NOTE | 2023-04-20 06:27 | NUR ---
Problems reprioritized. Patient report given, questions answered & plan of care reviewed with Milton DAUGHERTY.
[2023-04-20 06:33] LABS: BASOPHILS % (AUTO) 0.1 % (0-1); EOSINOPHILS % (AUTO) 0.1 % (0-6); HEMATOCRIT 33.8 % (35.0-45.0); HEMOGLOBIN 10.7 g/dl (12.0-16.0); LYMPHOCYTES # (AUTO) 1.7 X10'3 (1.1-4.8); MEAN CORPUSCULAR HEMOGLOBIN 27.6 PG (27.0-31.0); MEAN CORPUSCULAR HGB CONC 31.6 g/dL (33.0-36.5); MEAN CORPUSCULAR VOLUME 87.4 FL (78-98); MEAN PLATELET VOLUME 6.5 FL (7.4-10.4); MONOCYTES # (AUTO) 1.7 X10'3 (0-0.9); MONOCYTES % (AUTO) 10.8 % (2-12); NEUTROPHILS # (AUTO) 11.9 X10'3 (1.8-7.7); PLATELET COUNT 519 X10'3 (140-440); RED BLOOD COUNT 3.87 X10'6 (4.20-5.60); RED CELL DISTRIBUTION WIDTH 15.1 % (11.5-14.5); WHITE BLOOD COUNT 15.3 X10'3 (4.5-11.0)
[2023-04-20 06:38] LABS: ALANINE AMINOTRANSFERASE 25 U/L (12-78); ALBUMIN/GLOBULIN RATIO 0.4 (1.1-1.5); ALKALINE PHOSPHATASE 67 IU/L (46-116); ANION GAP 17 (8-16); ASPARTATE AMINO TRANSFERASE 45 U/L (10-37); BILIRUBIN,TOTAL 0.4 MG/DL (0.1-1.0); BLOOD UREA NITROGEN 29 MG/DL (7-18); BUN/CREATININE RATIO 30.9 (10.0-20.0); CALCIUM 8.9 MG/DL (8.5-10.1); CHLORIDE 106 MMOL/L (99-107); CREATININE 0.94 MG/DL (0.40-0.90); GLUCOSE 126 MG/DL (70-104); MAGNESIUM 2.3 MG/DL (1.5-2.4); PHOSPHORUS 2.2 MG/DL (2.3-4.5); SODIUM 141 MMOL/L (135-145); TOTAL PROTEIN 6.5 G/DL (6.4-8.2); eCRCL 54 ML/MIN; eGFR 60 ML/MIN
[2023-04-20] MEDS: docusate sod 100mg capsule PO SCH ×2 (08:00→21:01)
[2023-04-20] MEDS: sennosides/docusate sodium tablet PO SCH ×2 (08:00→21:01)
[2023-04-20] MEDS: duloxetine 30mg CAPSULE.DR PO SCH ×2 (08:00→08:01)
[2023-04-20] MEDS: lisinopril 10 MG tablet PO SCH (08:00)
[2023-04-20] MEDS: EMPAGLIFLOZIN 25 MG TABLET PO SCH (08:01)
[2023-04-20] MEDS: montelukast 10mg tablet PO SCH (08:01)
[2023-04-20] MEDS: levoTHYROXINE 75mcg tablet PO SCH (08:01)
[2023-04-20] MEDS: atorvastatin 10mg tablet PO SCH (08:01)
[2023-04-20] MEDS: pantoprazole 40MG/NS 100ML BAG 100 ML IV SCH (09:35)
--- NOTE | 2023-04-20 13:30 | NUR ---
Student documentation: I have reviewed all interventions, assessments performed and documented by April CLAYTON from [facility] . Student Medication Administration: For all medication-passes in the time frame of 9585-4342, all medication were reviewed, dispensed, administered and documented per hospital policy by April CLAYTON from [facility].
[2023-04-20] MEDS: normal saline 1000ml 1,000 ML IV SCH ×2 (15:41→23:30)
--- NOTE | 2023-04-20 18:45 | NUR ---
Problems reprioritized. Patient report given, questions answered & plan of care reviewed with MARLEY Reddy.
[2023-04-20] MEDS: insulin Lispro (HumaLOG) vial - multi-dose SQ SCH (19:05)
--- NOTE | 2023-04-20 19:15 | NUR ---
Pt has refused her Wound care bed [facility]. Bed has been replaced by hospital bed to her satisfactory. Addendum: 04/20/23 at 1916 by Maureen Mckeon RN Amended: Links added.
[2023-04-20] MEDS: enoxaparin 40mg/0.4ml syringe SUBCUT SCH (21:04)
[2023-04-21] MEDS: HYDROmorph/NS 0.2 mg/ml PCA 100 ML IV SCH ×6 (01:00→11:00)
[2023-04-21] MEDS: piperacillin/tazo 4.5gm/100ml 100 ML IV SCH ×3 (04:46→21:23)
[2023-04-21 05:00] VITALS: BP 117/60; PULSE 85; RESP 17; TEMP 97.6; O2SAT 96
[2023-04-21 06:26] LABS: BASOPHILS % (AUTO) 0.3 % (0-1); EOSINOPHILS # (AUTO) 0.3 X10'3 (0-0.9); HEMOGLOBIN 9.8 g/dl (12.0-16.0); LYMPHOCYTES # (AUTO) 1.6 X10'3 (1.1-4.8); MONOCYTES # (AUTO) 1.7 X10'3 (0-0.9); MONOCYTES % (AUTO) 12.6 % (2-12)
[2023-04-21 06:30] LABS: EOSINOPHILS % (AUTO) 2.4 % (0-6); HEMATOCRIT 30.8 % (35.0-45.0); LYMPHOCYTES % (AUTO) 11.7 % (21-51); MEAN CORPUSCULAR HEMOGLOBIN 27.4 PG (27.0-31.0); MEAN CORPUSCULAR HGB CONC 31.9 g/dL (33.0-36.5); MEAN CORPUSCULAR VOLUME 85.9 FL (78-98); MEAN PLATELET VOLUME 6.5 FL (7.4-10.4); PLATELET COUNT 472 X10'3 (140-440); RED BLOOD COUNT 3.58 X10'6 (4.20-5.60); RED CELL DISTRIBUTION WIDTH 14.6 % (11.5-14.5); WHITE BLOOD COUNT 13.7 X10'3 (4.5-11.0)
[2023-04-21 06:58] LABS: ALANINE AMINOTRANSFERASE 21 U/L (12-78); ALBUMIN 1.8 G/DL (3.4-5.0); ALBUMIN/GLOBULIN RATIO 0.5 (1.1-1.5); ALKALINE PHOSPHATASE 60 IU/L (46-116); ANION GAP 10 (8-16); ASPARTATE AMINO TRANSFERASE 38 U/L (10-37); BILIRUBIN,TOTAL 0.3 MG/DL (0.1-1.0); BLOOD UREA NITROGEN 20 MG/DL (7-18); CALCIUM 9.1 MG/DL (8.5-10.1); CHLORIDE 104 MMOL/L (99-107); CREATININE 0.91 MG/DL (0.40-0.90); GLUCOSE 147 MG/DL (70-104); POTASSIUM 3.9 MMOL/L (3.5-5.1); SODIUM 138 MMOL/L (135-145); TOTAL CARBON DIOXIDE 24.2 MMOL/L (24-32); TOTAL PROTEIN 5.8 G/DL (6.4-8.2); eCRCL 55 ML/MIN; eGFR 62 ML/MIN
[2023-04-21 07:31] LABS: MICROCYTOSIS 1+; PLATELET ESTIMATE INCREASED; TOTAL CELLS COUNTED 100
[2023-04-21] MEDS: insulin Lispro (HumaLOG) vial - multi-dose SQ SCH ×3 (09:18→18:52)
[2023-04-21] MEDS: levoTHYROXINE 75mcg tablet PO SCH (09:30)
[2023-04-21] MEDS: EMPAGLIFLOZIN 25 MG TABLET PO SCH (09:30)
[2023-04-21] MEDS: lisinopril 10 MG tablet PO SCH (09:30)
[2023-04-21] MEDS: pantoprazole 40mg Tablet.DR PO SCH (09:30)
[2023-04-21] MEDS: atorvastatin 10mg tablet PO SCH (09:30)
[2023-04-21] MEDS: normal saline 1000ml 1,000 ML IV SCH (09:59)
[2023-04-21 10:00] VITALS: BP 114/63; PULSE 90; RESP 16; TEMP 97.6; O2SAT 96
--- NOTE | 2023-04-21 10:36 | NUR ---
Message: Would you be so kind to look over the order for Cymbalta on [address] in [address]. There are two orders and I want to give the appropriate dose. Thank you Darlyn [id number] Transaction number: [id number]
[2023-04-21] MEDS: docusate sod 100mg capsule PO SCH ×2 (10:43→21:22)
[2023-04-21] MEDS: sennosides/docusate sodium tablet PO SCH ×2 (10:43→21:22)
[2023-04-21] MEDS: CADD PCA waste documentation MC SCH (13:56)
[2023-04-21] MEDS: montelukast 10mg tablet PO SCH (15:39)
[2023-04-21] MEDS: HYDROcodone/acetaminophen 10/325mg tab PO PRN ×2 (16:18→20:24)
[2023-04-21 18:00] VITALS: BP 120/66; PULSE 98; RESP 15; TEMP 97.9; O2SAT 98
[2023-04-21 20:00] VITALS: RESP 15; O2SAT 96
[2023-04-21] MEDS: enoxaparin 40mg/0.4ml syringe SUBCUT SCH (21:23)
[2023-04-21 22:00] VITALS: BP 133/71; PULSE 90; RESP 15; TEMP 97.9; O2SAT 96
[2023-04-22] MEDS: HYDROcodone/acetaminophen 10/325mg tab PO PRN ×3 (00:51→14:51)
[2023-04-22] MEDS: morphine 2 MG/ML inj. syringe IV PRN (03:54)
[2023-04-22] MEDS: piperacillin/tazo 4.5gm/100ml 100 ML IV SCH ×3 (03:54→20:52)
[2023-04-22] MEDS: normal saline 1000ml 1,000 ML IV SCH ×2 (04:04→15:30)
[2023-04-22 06:00] VITALS: BP 133/71; PULSE 88; RESP 15; TEMP 98.2; O2SAT 96
--- NOTE | 2023-04-22 06:22 | NUR ---
Problems reprioritized. Patient report given, questions answered & plan of care reviewed with MARLEY KNOWLES.
[2023-04-22 06:37] LABS: BASOPHILS # (AUTO) 0.1 X10'3 (0-0.2); BASOPHILS % (AUTO) 0.4 % (0-1); EOSINOPHILS # (AUTO) 0.4 X10'3 (0-0.9); EOSINOPHILS % (AUTO) 2.5 % (0-6); HEMATOCRIT 32.1 % (35.0-45.0); HEMOGLOBIN 10.3 g/dl (12.0-16.0); LYMPHOCYTES # (AUTO) 1.8 X10'3 (1.1-4.8); LYMPHOCYTES % (AUTO) 10.5 % (21-51); MEAN CORPUSCULAR HEMOGLOBIN 27.4 PG (27.0-31.0); MEAN CORPUSCULAR HGB CONC 32.2 g/dL (33.0-36.5); MEAN CORPUSCULAR VOLUME 85.4 FL (78-98); MEAN PLATELET VOLUME 6.6 FL (7.4-10.4); MONOCYTES # (AUTO) 1.4 X10'3 (0-0.9); MONOCYTES % (AUTO) 8.2 % (2-12); NEUTROPHILS # (AUTO) 13.1 X10'3 (1.8-7.7); NEUTROPHILS % (AUTO) 78.4 % (42-75); PLATELET COUNT 498 X10'3 (140-440); RED BLOOD COUNT 3.76 X10'6 (4.20-5.60); RED CELL DISTRIBUTION WIDTH 14.6 % (11.5-14.5); WHITE BLOOD COUNT 16.7 X10'3 (4.5-11.0)
[2023-04-22 06:52] LABS: ALANINE AMINOTRANSFERASE 26 U/L (12-78); ALBUMIN 1.7 G/DL (3.4-5.0); ALBUMIN/GLOBULIN RATIO 0.4 (1.1-1.5); ALKALINE PHOSPHATASE 64 IU/L (46-116); ANION GAP 17 (8-16); ASPARTATE AMINO TRANSFERASE 33 U/L (10-37); BILIRUBIN,TOTAL 0.4 MG/DL (0.1-1.0); BLOOD UREA NITROGEN 15 MG/DL (7-18); BUN/CREATININE RATIO 18.8 (10.0-20.0); CALCIUM 9.1 MG/DL (8.5-10.1); CHLORIDE 102 MMOL/L (99-107); GLUCOSE 133 MG/DL (70-104); MAGNESIUM 1.8 MG/DL (1.5-2.4); PHOSPHORUS 3.4 MG/DL (2.3-4.5); POTASSIUM 3.6 MMOL/L (3.5-5.1); SODIUM 139 MMOL/L (135-145); TOTAL CARBON DIOXIDE 20.3 MMOL/L (24-32); TOTAL PROTEIN 5.8 G/DL (6.4-8.2); eCRCL 63 ML/MIN; eGFR 72 ML/MIN
[2023-04-22 07:30] VITALS: RESP 20
[2023-04-22] MEDS: docusate sod 100mg capsule PO SCH ×2 (09:07→21:06)
[2023-04-22] MEDS: duloxetine 30mg CAPSULE.DR PO SCH ×3 (09:07→09:14)
[2023-04-22] MEDS: atorvastatin 10mg tablet PO SCH (09:07)
[2023-04-22] MEDS: pantoprazole 40mg Tablet.DR PO SCH (09:07)
[2023-04-22] MEDS: EMPAGLIFLOZIN 25 MG TABLET PO SCH (09:07)
[2023-04-22] MEDS: sennosides/docusate sodium tablet PO SCH ×2 (09:08→20:57)
[2023-04-22] MEDS: levoTHYROXINE 75mcg tablet PO SCH (09:08)
[2023-04-22] MEDS: montelukast 10mg tablet PO SCH (09:08)
[2023-04-22] MEDS: lisinopril 10 MG tablet PO SCH (09:11)
[2023-04-22 09:29] LABS: ANISOCYTOSIS FEW; LARGE PLATELETS FEW; PLATELET ESTIMATE INCREASED; TOTAL CELLS COUNTED 100; TOXIC GRANULATION 1+
[2023-04-22 09:34] LABS: SMUDGE CELLS 1+
[2023-04-22 10:00] VITALS: BP 134/78; PULSE 98; RESP 16; TEMP 97.7; O2SAT 100
[2023-04-22] MEDS: insulin Lispro (HumaLOG) vial - multi-dose SQ SCH ×2 (14:38→19:30)
--- NOTE | 2023-04-22 15:00 | NUR ---
pt states that she had previously refused specialty bed. c/o back pain and has requested the bed at this time
--- NOTE | 2023-04-22 16:35 | NUR ---
Initial: Pt DX left hemicolectomy with colostomy, acute on CKD stage III, GERD, sepsis present on admission (resolved) secondary to bowel perforation associated peritonitis, and hypoalbuminemia. Pt continues on clear liquids since 04/19 with average PO intake of 75% x 7 meals/clear liquids which met 40% of estimated kcal and 6% of estimated protein needs. Pt now inadequate nutrition 5 days since admit. Per [facility] note, pt has a large surgical wound 23.5cm x8cm x 2.3cm. Attempted to discuss diet advancement update with RN; unable to reach despite effort. Will re-attempt to reach RN, noted hospitalist and surgeon are following pt. LBM of 70ml ouput via colostomy on 04/21 per EMR. Recommendations: 1.Advanced diet as medically able to low fiber diet 2.monitor PO intake and need for ONS with diet advancement 3.bowel care per physician 4.scaled wt this admit;subsequent weekly scaled wts Addendum: 04/22/23 at [address] Amended: Links added.
[2023-04-22 18:00] VITALS: BP 142/75; PULSE 89; RESP 18; TEMP 98.1; O2SAT 98
--- NOTE | 2023-04-22 18:17 | NUR ---
Problems reprioritized. Patient report given, questions answered & plan of care reviewed with Su Blue RN.
[2023-04-22 20:00] VITALS: RESP 18; O2SAT 96
[2023-04-22] MEDS: enoxaparin 40mg/0.4ml syringe SUBCUT SCH (20:59)
[2023-04-22 22:00] VITALS: BP 138/58; PULSE 95; RESP 16; TEMP 98.1; O2SAT 96
[2023-04-23] MEDS: HYDROcodone/acetaminophen 10/325mg tab PO PRN ×2 (02:41→16:16)
[2023-04-23] MEDS: piperacillin/tazo 4.5gm/100ml 100 ML IV SCH ×2 (04:49→13:15)
[2023-04-23] MEDS: normal saline 1000ml 1,000 ML IV SCH (05:00)
--- NOTE | 2023-04-23 06:30 | NUR ---
Problems reprioritized. Patient report given, questions answered & plan of care reviewed with BENSON ROACH.
[2023-04-23 06:42] VITALS: BP 148/67; PULSE 86; RESP 16; TEMP 98.1; O2SAT 96
[2023-04-23 06:52] LABS: BASOPHILS # (AUTO) 0.1 X10'3 (0-0.2); BASOPHILS % (AUTO) 0.4 % (0-1); EOSINOPHILS # (AUTO) 0.2 X10'3 (0-0.9); EOSINOPHILS % (AUTO) 1.2 % (0-6); HEMATOCRIT 32.6 % (35.0-45.0); HEMOGLOBIN 10.5 g/dl (12.0-16.0); LYMPHOCYTES # (AUTO) 1.5 X10'3 (1.1-4.8); LYMPHOCYTES % (AUTO) 9.4 % (21-51); MEAN CORPUSCULAR HEMOGLOBIN 27.4 PG (27.0-31.0); MEAN CORPUSCULAR HGB CONC 32.3 g/dL (33.0-36.5); MEAN CORPUSCULAR VOLUME 84.9 FL (78-98); MEAN PLATELET VOLUME 6.6 FL (7.4-10.4); MONOCYTES # (AUTO) 1.4 X10'3 (0-0.9); MONOCYTES % (AUTO) 8.6 % (2-12); NEUTROPHILS # (AUTO) 12.8 X10'3 (1.8-7.7); NEUTROPHILS % (AUTO) 80.4 % (42-75); PLATELET COUNT 547 X10'3 (140-440); RED BLOOD COUNT 3.84 X10'6 (4.20-5.60); RED CELL DISTRIBUTION WIDTH 14.5 % (11.5-14.5)
[2023-04-23 07:30] VITALS: RESP 18
[2023-04-23 07:40] LABS: ALANINE AMINOTRANSFERASE 22 U/L (12-78); ALBUMIN 1.7 G/DL (3.4-5.0); ALBUMIN/GLOBULIN RATIO 0.4 (1.1-1.5); ALKALINE PHOSPHATASE 62 IU/L (46-116); ANION GAP 18 (8-16); ASPARTATE AMINO TRANSFERASE 28 U/L (10-37); BILIRUBIN,TOTAL 0.4 MG/DL (0.1-1.0); BLOOD UREA NITROGEN 13 MG/DL (7-18); BUN/CREATININE RATIO 16.9 (10.0-20.0); CALCIUM 8.9 MG/DL (8.5-10.1); CHLORIDE 102 MMOL/L (99-107); CREATININE 0.77 MG/DL (0.40-0.90); GLUCOSE 164 MG/DL (70-104); MAGNESIUM 1.5 MG/DL (1.5-2.4); PHOSPHORUS 3.3 MG/DL (2.3-4.5); POTASSIUM 3.7 MMOL/L (3.5-5.1); SODIUM 137 MMOL/L (135-145); TOTAL CARBON DIOXIDE 16.8 MMOL/L (24-32); TOTAL PROTEIN 5.8 G/DL (6.4-8.2); eCRCL 66 ML/MIN; eGFR 75 ML/MIN
[2023-04-23] MEDS: EMPAGLIFLOZIN 25 MG TABLET PO SCH (08:35)
[2023-04-23] MEDS: atorvastatin 10mg tablet PO SCH (08:35)
[2023-04-23] MEDS: sennosides/docusate sodium tablet PO SCH (08:36)
[2023-04-23] MEDS: levoTHYROXINE 75mcg tablet PO SCH (08:36)
[2023-04-23] MEDS: duloxetine 30mg CAPSULE.DR PO SCH ×2 (08:40→09:05)
[2023-04-23] MEDS: docusate sod 100mg capsule PO SCH (08:40)
[2023-04-23 08:43] VITALS: BP_SYST 147; PULSE 88
[2023-04-23] MEDS: lisinopril 10 MG tablet PO SCH (08:43)
[2023-04-23 08:49] LABS: TOTAL CELLS COUNTED 100
[2023-04-23 08:50] LABS: PLATELET ESTIMATE INCREASED
[2023-04-23 08:52] LABS: LARGE PLATELETS FEW
[2023-04-23] MEDS: insulin Lispro (HumaLOG) vial - multi-dose SQ SCH ×2 (09:00→13:09)
[2023-04-23] MEDS: montelukast 10mg tablet PO SCH (09:05)
[2023-04-23] MEDS: pantoprazole 40mg Tablet.DR PO SCH (09:05)
[2023-04-23] MEDS ORDERED: duloxetine 30mg CAPSULE.DR PO SCH (09:07)
[2023-04-23 16:16] VITALS: RESP 20
--- NOTE | 2023-04-23 17:45 | NUR ---
returned to pt room after calling report. (no prior notice from CM as to transfer details such as time) She was already off the floor. Wound vac pump at bedside. Unable to change dressing to wet to dry as patient was already gone.
== END 2023-04-23 17:55 | DRG 853 ==
LOC: ER 03:57 → ED HOLD 05:04 → ORTHO 4S 19:59
PROVIDERS: ADMIT Family Medicine; ATTEND Family Medicine
PROC: 0D1M0Z4 Bypass Descending Colon to Cutaneous, Open Approach (ICD-10-PCS; 2023-04-17)
PROC: 3E0T3BZ Introduction of Anesthetic Agent into Peripheral Nerves and Plexi, Percutaneous Approach (ICD-10-PCS; 2023-04-17)
PROC: 0DTG0ZZ Resection of Left Large Intestine, Open Approach (ICD-10-PCS; principal; 2023-04-17 16:30)
DX: A41.9 Sepsis, unspecified organism (principal); K63.1 Perforation of intestine (nontraumatic); K65.9 Peritonitis, unspecified; E87.1 Hypo-osmolality and hyponatremia; N17.9 Acute kidney failure, unspecified; N18.30 Chronic kidney disease, stage 3 unspecified; E66.9 Obesity, unspecified; Z68.34 Body mass index [BMI] 34.0-34.9, adult; D64.9 Anemia, unspecified; E03.9 Hypothyroidism, unspecified; E11.22 Type 2 diabetes mellitus with diabetic chronic kidney disease; E11.65 Type 2 diabetes mellitus with hyperglycemia; E88.09 Other disorders of plasma-protein metabolism, not elsewhere classified; N18.9 Chronic kidney disease, unspecified; I12.9 Hypertensive chronic kidney disease with stage 1 through stage 4 chronic kidney disease, or unspecified chronic kidney disease; J44.9 Chronic obstructive pulmonary disease, unspecified; K21.9 Gastro-esophageal reflux disease without esophagitis; K59.09 Other constipation; F32.A Depression, unspecified; F41.9 Anxiety disorder, unspecified; G89.29 Other chronic pain
CPT/HCPCS: 36415; 71045; 74176; 80053; 80061; 81001; 82948; 83036; 83605; 83690; 83735; 83880; 84100; 84145; 84439; 84443; 85007; 85025; 85610; 85730; 86885; 86900; 86901; 87040; 87088; 88307; 97110; 97116; 97162; 97530; 99285; A4215; A4421; A4615; A4618; A4649; A6213; A6258; A6449; A7000; C1758; C9113; C9290; G0378; J0131; J1100; J1170; J1200; J1650; J1815; J1885; J2250; J2270; J2405; J2543; J2704; J3010; J3490; J7030; J7120

== ENCOUNTER 2023-04-28 16:58 | Inpatient (IN) | payer MEDICARE, MEDICAID ==
[~2023-04-28] VITALS: Ht 165.1 cm; Wt 93.2 kg
[~2023-04-28 16:58] MED LIST changes: +ATOR10TA70 PO; -CLIN-214 PO; +DULA4.5P SQ; +DULO30CA52 PO; +DULO60CA65 PO; +EMPA25TA PO; -IBUP-1985 PO; +LANTUS SQ; +LEVO75TA7 PO; +LISI10TA27 PO; -LOPE2CAP PO; +MELO-102 PO; +METF-438 PO; +MONT-40 PO; +NOVLG SQ; +ONDA-103 PO; -ORPH100T4 PO; +PANT20TA18 PO; +TRAZ-251 PO
[2023-04-28] MEDS ORDERED: normal saline 1000ML IV soln IVB ONE (18:25)
[2023-04-28] MEDS ORDERED: ondansetron/PF 4mg/2ml inj IV ONE (18:25)
[2023-04-28 18:58] LABS: BILIRUBIN,URINE NEGATIVE (Neg); CLARITY,URINE SLIGHTLY CLOUDY (Clear); COLOR,URINE YELLOW (Yellow); GLUCOSE, URINE >=1000 mg/dl (Neg); KETONES,URINE NEGATIVE (Neg); LEUKOCYTE ESTERASE ,URINE NEGATIVE (Neg); NITRITES, URINE NEGATIVE (Neg); OCCULT BLOOD,URINE LARGE (Neg); PH,URINE 7.5 (4.8-8.0); PROTEIN,URINE TRACE mg/dl (Neg); UROBILINOGEN,URINE 0.2 E.U/dL (0.2-1.0)
[2023-04-28 19:07] LABS: UA COLLECTION TYPE CLN CATCH MIDSTREAM
[2023-04-28 19:08] LABS: SQUAMOUS EPITHELIAL CELL,UR FEW /LPF (FEW)
[2023-04-28 19:09] LABS: BACTERIA,URINE FEW /HPF (Neg); BASOPHILS % (AUTO) 0.4 % (0-1); EOSINOPHILS # (AUTO) 0.2 X10'3 (0-0.9); HEMOGLOBIN 10.6 g/dl (12.0-16.0); LYMPHOCYTES # (AUTO) 1.5 X10'3 (1.1-4.8); MEAN PLATELET VOLUME 6.6 FL (7.4-10.4); RBC,URINE 20-50 /HPF (0-2); RED CELL DISTRIBUTION WIDTH 14.1 % (11.5-14.5)
[2023-04-28 19:11] LABS: EOSINOPHILS % (AUTO) 1.9 % (0-6); HEMATOCRIT 32.2 % (35.0-45.0); LYMPHOCYTES % (AUTO) 16.5 % (21-51); MEAN CORPUSCULAR HEMOGLOBIN 27.3 PG (27.0-31.0); MEAN CORPUSCULAR HGB CONC 32.8 g/dL (33.0-36.5); MEAN CORPUSCULAR VOLUME 83.2 FL (78-98); MONOCYTES # (AUTO) 1.2 X10'3 (0-0.9); MONOCYTES % (AUTO) 13.4 % (2-12); NEUTROPHILS # (AUTO) 6.3 X10'3 (1.8-7.7); NEUTROPHILS % (AUTO) 67.8 % (42-75); PLATELET COUNT 622 X10'3 (140-440); RED BLOOD COUNT 3.87 X10'6 (4.20-5.60); WHITE BLOOD COUNT 9.3 X10'3 (4.5-11.0)
[2023-04-28 19:19] LABS: ALANINE AMINOTRANSFERASE 20 U/L (12-78); ALBUMIN 1.9 G/DL (3.4-5.0); ALBUMIN/GLOBULIN RATIO 0.4 (1.1-1.5); ALKALINE PHOSPHATASE 67 IU/L (46-116); ANION GAP 6 (8-16); ASPARTATE AMINO TRANSFERASE 20 U/L (10-37); BILIRUBIN,TOTAL 0.2 MG/DL (0.1-1.0); BLOOD UREA NITROGEN 10 MG/DL (7-18); BUN/CREATININE RATIO 11.9 (10.0-20.0); CALCIUM 8.8 MG/DL (8.5-10.1); CHLORIDE 99 MMOL/L (99-107); CREATININE 0.84 MG/DL (0.40-0.90); GLUCOSE 102 MG/DL (70-104); LIPASE 318 U/L (73-393); POTASSIUM 3.9 MMOL/L (3.5-5.1); SODIUM 135 MMOL/L (135-145); TOTAL CARBON DIOXIDE 29.8 MMOL/L (24-32); TOTAL PROTEIN 6.6 G/DL (6.4-8.2); eCRCL 60 ML/MIN; eGFR 68 ML/MIN
--- NOTE | 2023-04-28 19:32 | NUR ---
colostomy bag changed. stoma appearance brick red. cleaned surrounding area with normal saline and sterile 4x4 gauze prior to new bag application. pt tolerated change well.
[2023-04-28] MEDS ORDERED: iohexol 300mg/ml 100ml inj. ONE (19:39)
[2023-04-28] MEDS ORDERED: morphine 4 MG/ML inj SYRINge IV ONE ×2 (19:45→22:15)
[2023-04-28] MEDS ORDERED: piperacillin/tazo 3.375gm/50ml 50 ML IV ONE (20:40)
[2023-04-28] MEDS ORDERED: temazepam 15mg capsule PO PRN (21:00)
--- NOTE | 2023-04-28 21:37 | NUR ---
UPDATE GIVEN TO MARQUIS AGUDELO. OK'D PER PT.
[2023-04-28] MEDS ORDERED: magnesium hydroxide 30ml (MOM) UD suspension PO PRN (22:25)
[2023-04-28] MEDS ORDERED: ondansetron/PF 4mg/2ml inj IV PRN (22:25)
[2023-04-28] MEDS ORDERED: diphenhydrAMINE 25mg capsule PO PRN (22:25)
[2023-04-28] MEDS ORDERED: diphenhydrAMINE 50 mg/ml inj IV PRN (22:25)
[2023-04-28] MEDS ORDERED: ondansetron 4mg rapidly disintigrating tab PO PRN (22:25)
[2023-04-28] MEDS ORDERED: bisacodyl 10mg suppository rectal RC PRN (22:25)
[2023-04-28] MEDS ORDERED: acetaminophen 325mg tablet PO PRN ×2 (22:25)
[2023-04-28] MEDS ORDERED: HYDROcodone/acetaminophen 5mg/325mg tablet PO PRN (22:25)
[2023-04-28] MEDS ORDERED: acetaminophen 650mg rectal suppository RC PRN (22:25)
[2023-04-28] MEDS ORDERED: HYDROmorphone inj. 0.5 MG/0.5 ML DISP.SYRIN IV PRN (22:25)
[2023-04-28] MEDS ORDERED: mag hydrox/Alum hydrox/simeth 30ml oral suspension PO PRN (22:25)
[2023-04-28] MEDS ORDERED: dextrose 50%-water 50ml dispensing syringe IV PRN ×2 (22:30)
[2023-04-28] MEDS ORDERED: glucagon, human recombinant 1mg kit SUBCUT PRN (22:30)
[2023-04-28] MEDS ORDERED: MESSAGE TO PHARMACY PO ONE (22:30)
[2023-04-28] MEDS ORDERED: insulin Lispro (HumaLOG) vial - multi-dose SQ SCH (22:30)
[2023-04-28] MEDS ORDERED: DEXTROSE 15 GM of carb/4 tabs (each vial/BOTTLE has 4 tablets) PO PRN ×2 (22:30)
[2023-04-28] MEDS: normal saline 1000ml 1,000 ML IV SCH (22:50)
--- NOTE | 2023-04-28 23:00 | NUR ---
PT PLACED ON HOSPITAL BED.
[2023-04-29 01:08] LABS: BASOPHILS % (AUTO) 0.5 % (0-1); EOSINOPHILS # (AUTO) 0.2 X10'3 (0-0.9); HEMATOCRIT 27.5 % (35.0-45.0); HEMOGLOBIN 9.2 g/dl (12.0-16.0); LYMPHOCYTES # (AUTO) 1.3 X10'3 (1.1-4.8); LYMPHOCYTES % (AUTO) 16.3 % (21-51); MEAN CORPUSCULAR HEMOGLOBIN 27.8 PG (27.0-31.0); MEAN CORPUSCULAR HGB CONC 33.4 g/dL (33.0-36.5); MEAN CORPUSCULAR VOLUME 83.2 FL (78-98); MEAN PLATELET VOLUME 6.5 FL (7.4-10.4); MONOCYTES # (AUTO) 1.1 X10'3 (0-0.9); MONOCYTES % (AUTO) 14.3 % (2-12); NEUTROPHILS # (AUTO) 5.3 X10'3 (1.8-7.7); NEUTROPHILS % (AUTO) 66.9 % (42-75); PLATELET COUNT 576 X10'3 (140-440); RED BLOOD COUNT 3.31 X10'6 (4.20-5.60); RED CELL DISTRIBUTION WIDTH 13.9 % (11.5-14.5); WHITE BLOOD COUNT 7.9 X10'3 (4.5-11.0)
[2023-04-29 01:16] LABS: APTT 30 SECONDS (22-32); PROTHROMBIN TIME 11.1 SECONDS (9.0-12.0)
[2023-04-29 01:33] LABS: ALANINE AMINOTRANSFERASE 16 U/L (12-78); ALBUMIN 1.7 G/DL (3.4-5.0); ALBUMIN/GLOBULIN RATIO 0.4 (1.1-1.5); ALKALINE PHOSPHATASE 61 IU/L (46-116); ANION GAP 5 (8-16); ASPARTATE AMINO TRANSFERASE 19 U/L (10-37); BILIRUBIN,TOTAL 0.1 MG/DL (0.1-1.0); BLOOD UREA NITROGEN 9 MG/DL (7-18); BUN/CREATININE RATIO 11.8 (10.0-20.0); CALCIUM 8.2 MG/DL (8.5-10.1); CHLORIDE 101 MMOL/L (99-107); CHOL/HDL RATIO 2.3 (0.00-4.99); CHOLESTEROL 73 MG/DL (0-200); CREATININE 0.76 MG/DL (0.40-0.90); GLUCOSE 98 MG/DL (70-104); HDL CHOLESTEROL 32 MG/DL (35-60); LDL CHOLESTEROL 26 MG/DL (50-100); MAGNESIUM 1.4 MG/DL (1.5-2.4); PHOSPHORUS 3.5 MG/DL (2.3-4.5); POTASSIUM 3.7 MMOL/L (3.5-5.1); PRO BRAIN NATRIURETIC PEPTIDE 325 PG/ML (0-125); SODIUM 135 MMOL/L (135-145); TOTAL CARBON DIOXIDE 29.4 MMOL/L (24-32); TOTAL PROTEIN 5.8 G/DL (6.4-8.2); TRIGLYCERIDES 145 MG/DL (20-135); eCRCL 66 ML/MIN; eGFR 76 ML/MIN
[2023-04-29 01:53] LABS: HEMOGLOBIN A1C 6.5 % (4.5-6.2)
[2023-04-29] MEDS: morphine 2 MG/ML inj. syringe IV PRN ×6 (03:21→21:25)
[2023-04-29] MEDS: piperacillin/tazo 4.5gm/100ml 100 ML IV SCH ×3 (05:00→21:25)
[2023-04-29] MEDS: normal saline 1000ml 1,000 ML IV SCH ×3 (05:05→18:47)
[2023-04-29] MEDS: docusate sod 100mg capsule PO SCH ×2 (08:01→21:25)
[2023-04-29 10:00] VITALS: RESP 16
[2023-04-29] MEDS: diatr meglu/diatrizoate 30ml oral sol.-(3 dose) bottle PO SCH ×2 (10:30→12:29)
[2023-04-29 11:34] VITALS: BP 136/65; PULSE 89; RESP 18; TEMP 97.7; O2SAT 96
[2023-04-29] MEDS ORDERED: diatr meglu/diatrizoate 30ml oral sol.-(3 dose) bottle PO SCH (12:00)
[2023-04-29] MEDS ORDERED: magnesium 2GM in 50ml NS 50 ML IV ONE (12:40)
[2023-04-29 14:27] VITALS: BP 144/72; PULSE 94; RESP 17; O2SAT 100
[2023-04-29 14:47] VITALS: BP 134/69; PULSE 100; RESP 18; O2SAT 100
--- NOTE | 2023-04-29 18:30 | NUR ---
Patient in room PCU 3012. I have received report from BASHIR and had the opportunity to ask questions and assume patient care.
--- NOTE | 2023-04-29 18:33 | NUR ---
Problems reprioritized. Patient report given, questions answered & plan of care reviewed with ELIEL ROACH.
[2023-04-29 19:00] VITALS: BP 134/67; PULSE 92; RESP 20; TEMP 98.9; O2SAT 95
--- NOTE | 2023-04-29 19:00 | NUR ---
HOME WOUND VAC MACHINE FOUND TO BE TURNED OFF FOR UNKNOWN PERIOD OF TIME. PER POLICY, WOUND VAC REMOVED, WOUND PICTURE TAKEN AND WET TO DRY DRESSING PLACED OVER WOUND.
[2023-04-29 22:00] VITALS: BP 132/64; PULSE 84; RESP 16; TEMP 97.6; O2SAT 95
[2023-04-30] MEDS: normal saline 1000ml 1,000 ML IV SCH ×3 (01:36→18:04)
[2023-04-30 03:00] VITALS: BP 126/66; PULSE 86; RESP 20; TEMP 98.4; O2SAT 98
[2023-04-30] MEDS: morphine 2 MG/ML inj. syringe IV PRN (03:25)
[2023-04-30] MEDS: piperacillin/tazo 4.5gm/100ml 100 ML IV SCH ×3 (05:27→21:30)
--- NOTE | 2023-04-30 06:30 | NUR ---
Patient in room PCU 3012. I have received report from ELIEL ROACH and had the opportunity to ask questions and assume patient care.
--- NOTE | 2023-04-30 06:40 | NUR ---
Problems reprioritized. Patient report given, questions answered & plan of care reviewed with GURDEEP.
[2023-04-30 07:09] VITALS: BP 140/70; PULSE 84; RESP 18; TEMP 97.7; O2SAT 96
[2023-04-30] MEDS: docusate sod 100mg capsule PO SCH ×2 (07:29→19:52)
[2023-04-30 07:38] LABS: BASOPHILS # (AUTO) 0.1 X10'3 (0-0.2); EOSINOPHILS # (AUTO) 0.2 X10'3 (0-0.9); HEMOGLOBIN 9.3 g/dl (12.0-16.0); LYMPHOCYTES # (AUTO) 1.5 X10'3 (1.1-4.8); MEAN PLATELET VOLUME 6.3 FL (7.4-10.4); WHITE BLOOD COUNT 8.1 X10'3 (4.5-11.0)
[2023-04-30 07:40] LABS: BASOPHILS % (AUTO) 0.7 % (0-1); HEMATOCRIT 28.3 % (35.0-45.0); LYMPHOCYTES % (AUTO) 18.9 % (21-51); MEAN CORPUSCULAR HEMOGLOBIN 27.5 PG (27.0-31.0); MEAN CORPUSCULAR HGB CONC 32.6 g/dL (33.0-36.5); MEAN CORPUSCULAR VOLUME 84.2 FL (78-98); MONOCYTES # (AUTO) 1.3 X10'3 (0-0.9); MONOCYTES % (AUTO) 15.8 % (2-12); NEUTROPHILS % (AUTO) 61.6 % (42-75); PLATELET COUNT 692 X10'3 (140-440); RED BLOOD COUNT 3.36 X10'6 (4.20-5.60); RED CELL DISTRIBUTION WIDTH 14.1 % (11.5-14.5)
[2023-04-30 07:42] LABS: ALANINE AMINOTRANSFERASE 14 U/L (12-78); ALBUMIN 1.6 G/DL (3.4-5.0); ALBUMIN/GLOBULIN RATIO 0.4 (1.1-1.5); ALKALINE PHOSPHATASE 64 IU/L (46-116); ANION GAP 9 (8-16); ASPARTATE AMINO TRANSFERASE 20 U/L (10-37); BILIRUBIN,TOTAL 0.3 MG/DL (0.1-1.0); BLOOD UREA NITROGEN 7 MG/DL (7-18); BUN/CREATININE RATIO 8.5 (10.0-20.0); CALCIUM 8.3 MG/DL (8.5-10.1); CHLORIDE 103 MMOL/L (99-107); CREATININE 0.82 MG/DL (0.40-0.90); GLUCOSE 100 MG/DL (70-104); POTASSIUM 4.2 MMOL/L (3.5-5.1); SODIUM 137 MMOL/L (135-145); TOTAL CARBON DIOXIDE 25.5 MMOL/L (24-32); TOTAL PROTEIN 5.7 G/DL (6.4-8.2); eCRCL 62 ML/MIN; eGFR 70 ML/MIN
[2023-04-30] MEDS: HYDROcodone/acetaminophen 10/325mg tab PO PRN ×3 (08:47→19:51)
[2023-04-30 12:00] VITALS: BP 131/66; PULSE 86; RESP 17; TEMP 97.6; O2SAT 98
[2023-04-30 15:00] VITALS: BP 136/63; PULSE 83; RESP 20; TEMP 98.1; O2SAT 97
[2023-04-30 15:15] LABS: TOTAL CELLS COUNTED 100
[2023-04-30 15:16] LABS: PLATELET ESTIMATE INCREASED
[2023-04-30 15:21] LABS: SMUDGE CELLS 1+
--- NOTE | 2023-04-30 16:08 | NUR ---
PRESSURE ULCER EDUCATION: DEFINITION: A pressure ulcer is an area of skin that breaks down when you stay in one position too long. The constant pressure against the skin reduces the blood flow to that area and the affected tissue dies. CAUSES: "Being bedridden or in a wheelchair "Fragile skin "Having a chronic condition, such as diabetes or vascular disease "Inability to move certain parts of your body without assistance "Older age "Incontinence of urine or stool SYMPTOMS: "A reddened area that DOES NOT turn white when pressed on - this can be the beginning of a pressure ulcer "A blister, deep sore or a crater - these can be advanced pressure ulcers FIRST AID: "Relieve the pressure on this area "Keep the area clean and dry "Call your primary doctor if you see any of the above symptoms "DO NOT massage the area "DO NOT use a donut shaped or ring shaped pillow- these actually interfere with the blood flow and cause complications PREVENTION: "Check for pressure ulcers everyday "Change position at least every two hours to relieve pressure "Use items that help relieve pressure- pillows, sheepskin, foam padding, and powders. "Keep skin clean and dry "Eat healthy well balanced meals "Exercise daily IF YOU SEE ANY OF THESE SYMPTOMS WHILE IN THE HOSPITAL - TELL YOUR NURSE IMMEDIATELY. IF YOU SEE ANY OF THESE SYMPTOMS WHILE AT HOME OR HAVE ANY QUESTIONS OR CONCERNS ABOUT PRESSURE ULCERS - CALL YOUR PRIMARY DOCTOR IMMEDIATELY. Addendum: 04/30/23 at 1608 by Angella Laureano RN Amended: Links added.
--- NOTE | 2023-04-30 16:18 | NUR ---
SPOKE WITH DR DE ANDA RE: WOUND CARE ORDERS. OK TO PLACE WOUND VAC ON SURGICAL WOUND. WET TO DRY UNTIL WOUND VAC IS PLACED. NOTIFIED WOUND CARE, THEY STATE THEY WILL APPLY [place] TOMORROW AM.
[2023-04-30 18:00] VITALS: BP 144/74; PULSE 83; RESP 17; TEMP 97.6; O2SAT 98
--- NOTE | 2023-04-30 18:22 | NUR ---
Problems reprioritized. Patient report given, questions answered & plan of care reviewed with BUCK ROACH.
--- NOTE | 2023-04-30 21:49 | NUR ---
PT REFUSED HER LANTUS TONIGHT AND WOULD LIKE TO SEE WHAT HER BLOOD SUGAR IS IN THE MORNING. SHE SAID SHE WAS GIVEN A CUSTARD AT DINNER AND THAT MAY BE WHY HER BLOOD SUGAR WAS HIGH.
[2023-04-30 22:00] VITALS: BP 145/66; PULSE 80; RESP 16; TEMP 99.5; O2SAT 95
[2023-05-01 01:29] VITALS: BP 145/70; PULSE 86; RESP 16; TEMP 99.7; O2SAT 96
[2023-05-01] MEDS: HYDROcodone/acetaminophen 10/325mg tab PO PRN ×2 (02:57→09:30)
[2023-05-01] MEDS: normal saline 1000ml 1,000 ML IV SCH (04:47)
[2023-05-01] MEDS: piperacillin/tazo 4.5gm/100ml 100 ML IV SCH ×2 (04:47→13:11)
--- NOTE | 2023-05-01 06:20 | NUR ---
Problems reprioritized. Patient report given, questions answered & plan of care reviewed with MARLEY MACKENZIE.
[2023-05-01 07:35] VITALS: BP 139/75; PULSE 81; RESP 15; TEMP 98; O2SAT 97
[2023-05-01 07:53] LABS: EOSINOPHILS # (AUTO) 0.2 X10'3 (0-0.9); LYMPHOCYTES # (AUTO) 1.2 X10'3 (1.1-4.8); MONOCYTES # (AUTO) 0.9 X10'3 (0-0.9)
[2023-05-01 07:57] LABS: BASOPHILS % (AUTO) 0.6 % (0-1); EOSINOPHILS % (AUTO) 3.1 % (0-6); HEMATOCRIT 27.6 % (35.0-45.0); HEMOGLOBIN 8.9 g/dl (12.0-16.0); LYMPHOCYTES % (AUTO) 19.4 % (21-51); MEAN CORPUSCULAR HGB CONC 32.3 g/dL (33.0-36.5); MEAN CORPUSCULAR VOLUME 83.5 FL (78-98); MEAN PLATELET VOLUME 6.2 FL (7.4-10.4); MONOCYTES % (AUTO) 14.6 % (2-12); NEUTROPHILS % (AUTO) 62.3 % (42-75); PLATELET COUNT 804 X10'3 (140-440); RED BLOOD COUNT 3.31 X10'6 (4.20-5.60); RED CELL DISTRIBUTION WIDTH 14.1 % (11.5-14.5); WHITE BLOOD COUNT 6.4 X10'3 (4.5-11.0)
[2023-05-01 08:17] LABS: ALANINE AMINOTRANSFERASE 18 U/L (12-78); ALBUMIN 1.7 G/DL (3.4-5.0); ALBUMIN/GLOBULIN RATIO 0.4 (1.1-1.5); ALKALINE PHOSPHATASE 63 IU/L (46-116); ANION GAP 6 (8-16); ASPARTATE AMINO TRANSFERASE 20 U/L (10-37); BILIRUBIN,TOTAL 0.3 MG/DL (0.1-1.0); BLOOD UREA NITROGEN 6 MG/DL (7-18); BUN/CREATININE RATIO 7.5 (10.0-20.0); CALCIUM 8.7 MG/DL (8.5-10.1); CHLORIDE 101 MMOL/L (99-107); GLUCOSE 134 MG/DL (70-104); POTASSIUM 4.4 MMOL/L (3.5-5.1); SODIUM 134 MMOL/L (135-145); TOTAL CARBON DIOXIDE 26.8 MMOL/L (24-32); eCRCL 63 ML/MIN; eGFR 72 ML/MIN
[2023-05-01 09:00] VITALS: RESP 16; O2SAT 97
[2023-05-01] MEDS: docusate sod 100mg capsule PO SCH (09:25)
[2023-05-01 09:30] VITALS: RESP 18
--- NOTE | 2023-05-01 10:04 | NUR ---
FLUSHED DIEGO BULB WITH 10ML NS WITH NO RESISTANCE RAMIRO BARKER NOTIFIED NO ADDITIONAL ORDERS
[2023-05-01] MEDS: morphine 2 MG/ML inj. syringe IV PRN (11:14)
--- NOTE | 2023-05-01 14:59 | NUR ---
WOUND VAC EDUCATION PROVIDED BY WOUND CARE 1. Patient instructed to call the Wound Center or their Home Health Agency immediately if: * They notice a change in the color or amount of the fluid in the canister. * Their wound looks more red than usual or has a foul smell. * The skin around their wound looks reddened or irritated. * The dressing feels loose or appears to be loose. * They experience any increase or changes in their pain. * The alarm will not turn off. 2. Patient instructed that they should not be disconnected from suction for more than 2 hours at a time. * If they are not able to get the suction back on, they need to remove the dressing and take all of the foam out of the wound. * Then moisten sterile gauze with normal saline and place on/in the wound. * Change the dressing once a day until arrangements have been made to replace the wound vac dressing. 3. Patient instructed to turn the wound vac machine OFF and call 911 or go to the ED immediately if their canister fills rapidly with blood. 4. If any of these occur while in the hospital tell a nurse immediately. Addendum: 05/01/23 at 1500 by Stephanie Stanton LVN Amended: Links added.
--- NOTE | 2023-05-01 15:24 | NUR ---
Patient DC to [facility], in stable condition. IV DC. cannula intact. All belongings in hand, including wound vac belonging to [facility]. Addendum: 05/01/23 at 1526 by Hope MALDONADO Amended: Links added.
[2023-05-16] MEDS ORDERED: LACT1CAP26 PO (12:01)
[2023-05-16] MEDS ORDERED: AMOX-580 PO (12:01)
[2023-05-16] MEDS ORDERED: HYDR-3965 PO (15:27)
== END 2023-05-01 15:15 | DRG 371 ==
LOC: ER 16:58 → ED HOLD 22:28 → PCU 3S 04-29 08:19
PROVIDERS: ADMIT Family Medicine; ATTEND Internal Medicine
PROC: 0W9G30Z Drainage of Peritoneal Cavity with Drainage Device, Percutaneous Approach (ICD-10-PCS; principal; 2023-04-29)
DX: K65.1 Peritoneal abscess (principal); E43 Unspecified severe protein-calorie malnutrition; N39.0 Urinary tract infection, site not specified; D64.9 Anemia, unspecified; D75.839 Thrombocytosis, unspecified; E88.09 Other disorders of plasma-protein metabolism, not elsewhere classified; G89.4 Chronic pain syndrome; I10 Essential (primary) hypertension; J44.9 Chronic obstructive pulmonary disease, unspecified; E11.65 Type 2 diabetes mellitus with hyperglycemia; E03.9 Hypothyroidism, unspecified; Z93.3 Colostomy status; Z68.34 Body mass index [BMI] 34.0-34.9, adult
CPT/HCPCS: 10160; 36415; 74177; 76942; 80053; 80061; 81001; 82948; 83036; 83605; 83690; 83735; 83880; 84100; 85007; 85025; 85610; 85730; 87040; 87070; 87077; 87081; 87088; 87186; 99285; A4421; A5200; A6253; A6258; A6446; A6449; C1729; C1769; G0378; J1815; J2270; J2405; J2543; J3475; J3490; J7030; Q9963; Q9967

== ENCOUNTER 2023-06-06 10:31 | Emergency (ER) | payer MEDICARE, MEDICAID ==
[~2023-06-06] VITALS: Ht 165.1 cm; Wt 77.6 kg
[~2023-06-06 10:31] MED LIST changes: -DULO30CA52 PO; +HYDR-3965 PO; +LACT1CAP26 PO; -ONDA-103 PO
[2023-06-06 11:45] LABS: BASOPHILS % (AUTO) 0.5 % (0-1); EOSINOPHILS # (AUTO) 0.2 X10'3 (0-0.9); EOSINOPHILS % (AUTO) 2.4 % (0-6); HEMATOCRIT 35.4 % (35.0-45.0); HEMOGLOBIN 11.4 g/dl (12.0-16.0); LYMPHOCYTES # (AUTO) 3.4 X10'3 (1.1-4.8); LYMPHOCYTES % (AUTO) 41.9 % (21-51); MEAN CORPUSCULAR HEMOGLOBIN 26.7 PG (27.0-31.0); MEAN CORPUSCULAR HGB CONC 32.3 g/dL (33.0-36.5); MEAN CORPUSCULAR VOLUME 82.8 FL (78-98); MEAN PLATELET VOLUME 6.5 FL (7.4-10.4); MONOCYTES # (AUTO) 0.7 X10'3 (0-0.9); MONOCYTES % (AUTO) 9.2 % (2-12); NEUTROPHILS # (AUTO) 3.7 X10'3 (1.8-7.7); PLATELET COUNT 433 X10'3 (140-440); RED BLOOD COUNT 4.28 X10'6 (4.20-5.60); WHITE BLOOD COUNT 8.1 X10'3 (4.5-11.0)
[2023-06-06 11:51] LABS: URINE HCG NEGATIVE (NEG)
[2023-06-06 11:52] LABS: BILIRUBIN,URINE NEGATIVE (Neg); CLARITY,URINE CLOUDY (Clear); COLOR,URINE YELLOW (Yellow); GLUCOSE, URINE >=1000 mg/dl (Neg); KETONES,URINE NEGATIVE (Neg); LEUKOCYTE ESTERASE ,URINE NEGATIVE (Neg); NITRITES, URINE NEGATIVE (Neg); OCCULT BLOOD,URINE NEGATIVE (Neg); PROTEIN,URINE NEGATIVE (Neg); UROBILINOGEN,URINE 0.2 E.U/dL (0.2-1.0)
[2023-06-06 12:10] LABS: ALANINE AMINOTRANSFERASE 18 U/L (12-78); ALBUMIN 3.7 G/DL (3.4-5.0); ALBUMIN/GLOBULIN RATIO 0.9 (1.1-1.5); ALKALINE PHOSPHATASE 71 IU/L (46-116); ANION GAP 9 (8-16); ASPARTATE AMINO TRANSFERASE 17 U/L (10-37); BILIRUBIN,TOTAL 0.3 MG/DL (0.1-1.0); BLOOD UREA NITROGEN 27 MG/DL (7-18); CALCIUM 10.2 MG/DL (8.5-10.1); CHLORIDE 97 MMOL/L (99-107); CREATININE 1.08 MG/DL (0.40-0.90); GLUCOSE 77 MG/DL (70-104); LIPASE 114 U/L (16-77); SODIUM 135 MMOL/L (135-145); TOTAL CARBON DIOXIDE 29.1 MMOL/L (24-32); TOTAL PROTEIN 7.9 G/DL (6.4-8.2); eCRCL 47 ML/MIN; eGFR 51 ML/MIN
[2023-06-06 12:13] LABS: UA COLLECTION TYPE CLN CATCH MIDSTREAM
[2023-06-06 12:18] LABS: BACTERIA,URINE NONE SEEN /HPF (Neg); MUCUS STRANDS NONE SEEN /LPF (Neg); RBC,URINE NONE SEEN /HPF (0-2); SQUAMOUS EPITHELIAL CELL,UR FEW /LPF (FEW); WBC,URINE 0-4 /HPF (0-4)
[2023-06-06 13:15] VITALS: RESP 16; TEMP 98
[2023-06-06] MEDS: diatr meglu/diatrizoate 30ml oral sol.-(3 dose) bottle PO SCH ×3 (15:56→17:26)
[2023-06-06] MEDS ORDERED: iohexol 300mg/ml 100ml inj. ONE (17:25)
[2023-06-06 18:29] VITALS: BP 97/56; PULSE 77; O2SAT 99
[2023-06-06] MEDS ORDERED: DOXYCYCLINE 100MG CAPSULE PO STA (18:40)
[2023-06-06] MEDS ORDERED: DOXY-411 PO (18:42)
--- NOTE | 2023-06-06 18:54 | NUR ---
pt was given discharge instructions. Pt is a&o x4, ambulatory.
== END 2023-06-06 18:55 | disposition home or self-care (01) ==
LOC: ER 10:32
DX: K91.89 Other postprocedural complications and disorders of digestive system (principal); R10.9 Unspecified abdominal pain; I10 Essential (primary) hypertension; J44.9 Chronic obstructive pulmonary disease, unspecified; E11.9 Type 2 diabetes mellitus without complications; E07.9 Disorder of thyroid, unspecified; Z79.899 Other long term (current) drug therapy
CPT/HCPCS: 36415; 74177; 80053; 81001; 81025; 83690; 85025; 99285; J3490; Q9963; Q9967

== ENCOUNTER 2023-06-24 13:49 | Emergency (ER) | payer MEDICARE, MEDICAID ==
[~2023-06-24] VITALS: Ht 165.1 cm; Wt 78.5 kg
[~2023-06-24 13:49] MED LIST changes: -HYDR-3965 PO
[2023-06-24 14:07] VITALS: BP 109/89; PULSE 106; RESP 16; O2SAT 97
[2023-06-24 14:52] LABS: BASOPHILS % (AUTO) 0.2 % (0-1); EOSINOPHILS % (AUTO) 0.1 % (0-6); HEMATOCRIT 30.7 % (35.0-45.0); HEMOGLOBIN 10.2 g/dl (12.0-16.0); LYMPHOCYTES # (AUTO) 1.3 X10'3 (1.1-4.8); LYMPHOCYTES % (AUTO) 13.1 % (21-51); MEAN CORPUSCULAR HEMOGLOBIN 26.9 PG (27.0-31.0); MEAN CORPUSCULAR HGB CONC 33.4 g/dL (33.0-36.5); MEAN CORPUSCULAR VOLUME 80.5 FL (78-98); MEAN PLATELET VOLUME 6.3 FL (7.4-10.4); MONOCYTES # (AUTO) 1.7 X10'3 (0-0.9); MONOCYTES % (AUTO) 17.1 % (2-12); NEUTROPHILS % (AUTO) 69.5 % (42-75); PLATELET COUNT 416 X10'3 (140-440); RED BLOOD COUNT 3.81 X10'6 (4.20-5.60); RED CELL DISTRIBUTION WIDTH 14.3 % (11.5-14.5); WHITE BLOOD COUNT 10.1 X10'3 (4.5-11.0)
[2023-06-24 14:59] LABS: ALANINE AMINOTRANSFERASE 16 U/L (12-78); ALBUMIN/GLOBULIN RATIO 0.8 (1.1-1.5); ALKALINE PHOSPHATASE 68 IU/L (46-116); ANION GAP 8 (8-16); ASPARTATE AMINO TRANSFERASE 13 U/L (10-37); BILIRUBIN,TOTAL 0.4 MG/DL (0.1-1.0); BLOOD UREA NITROGEN 24 MG/DL (7-18); BUN/CREATININE RATIO 21.1 (10.0-20.0); CALCIUM 9.6 MG/DL (8.5-10.1); CHLORIDE 96 MMOL/L (99-107); CREATININE 1.14 MG/DL (0.40-0.90); GLUCOSE 100 MG/DL (70-104); LIPASE 35 U/L (16-77); POTASSIUM 4.4 MMOL/L (3.5-5.1); SODIUM 129 MMOL/L (135-145); TOTAL CARBON DIOXIDE 25.4 MMOL/L (24-32); TOTAL PROTEIN 6.9 G/DL (6.4-8.2); eCRCL 44 ML/MIN; eGFR 48 ML/MIN
[2023-06-24 15:20] LABS: GIANT PLATELET FEW; PLATELET ESTIMATE NORMAL; TOTAL CELLS COUNTED 100
[2023-06-24] MEDS ORDERED: iohexol 300mg/ml 100ml inj. ONE (15:29)
[2023-06-24] MEDS ORDERED: ringers solution, lacted 1,000 ML IV ONE (16:40)
[2023-06-24] MEDS ORDERED: LACT10SO3 PO (18:16)
[2023-06-24 18:25] VITALS: TEMP 98.4
== END 2023-06-24 18:28 | disposition home or self-care (01) ==
LOC: ER 13:49
DX: K94.00 Colostomy complication, unspecified (principal); K59.00 Constipation, unspecified; I10 Essential (primary) hypertension; J44.9 Chronic obstructive pulmonary disease, unspecified; E11.9 Type 2 diabetes mellitus without complications; Z79.899 Other long term (current) drug therapy
CPT/HCPCS: 36415; 74177; 80053; 83690; 85007; 85025; 96360; 99285; J3490; J7042; J7120; Q9967; 99284

== ENCOUNTER 2023-09-03 07:30 | Inpatient (IN) | payer MEDICARE, MEDICAID ==
[2023-08-28 15:04] LABS: BASOPHILS # (AUTO) 0.1 X10'3 (0-0.2); BASOPHILS % (AUTO) 0.5 % (0-1); EOSINOPHILS # (AUTO) 0.1 X10'3 (0-0.9); EOSINOPHILS % (AUTO) 1.3 % (0-6); LYMPHOCYTES # (AUTO) 2.5 X10'3 (1.1-4.8); LYMPHOCYTES % (AUTO) 25.3 % (21-51); MEAN CORPUSCULAR HEMOGLOBIN 25.3 PG (27.0-31.0); MEAN CORPUSCULAR HGB CONC 32.2 g/dL (33.0-36.5); MEAN CORPUSCULAR VOLUME 78.8 FL (78-98); MEAN PLATELET VOLUME 6.5 FL (7.4-10.4); MONOCYTES # (AUTO) 0.9 X10'3 (0-0.9); NEUTROPHILS # (AUTO) 6.4 X10'3 (1.8-7.7); NEUTROPHILS % (AUTO) 63.9 % (42-75); PRE OP HEMATOCRIT 35.3 % (35.0-45.0); PRE OP HEMOGLOBIN 11.4 g/dL (12.0-16.0); PRE OP PLATELET COUNT 392 X10'3 (140-440); RED BLOOD COUNT 4.48 X10'6 (4.20-5.60); RED CELL DISTRIBUTION WIDTH 15.3 % (11.5-14.5)
[2023-08-28 15:26] LABS: ALBUMIN 3.9 G/DL (3.4-5.0); ALKALINE PHOSPHATASE 49 IU/L (46-116); BLOOD UREA NITROGEN 23 MG/DL (7-18); BUN/CREATININE RATIO 26.1 (10.0-20.0); CALCIUM 9.9 MG/DL (8.5-10.1); CHLORIDE 102 MMOL/L (99-107); CREATININE 0.88 MG/DL (0.40-0.90); PRE OP ALT 17 U/L (30-65); PRE OP ANION GAP 8 (8-16); PRE OP AST 12 U/L (10-37); PRE OP BILIRUB, TOTAL 0.2 MG/DL (0.0-1.0); PRE OP POTASSIUM 4.6 MMOL/L (3.4-5.1); PRE OP SODIUM 139 MMOL/L (135-145); TOTAL CARBON DIOXIDE 28.6 MMOL/L (24-32); TOTAL PROTEIN 7.8 G/DL (6.4-8.2); eGFR 64 ML/MIN
[2023-08-28 15:42] LABS: HEMOGLOBIN A1C 5.7 % (4.5-6.2)
[2023-08-28 15:48] LABS: PRE OP GLUCOSE 59 MG/DL (70-104)
[2023-09-03] VITALS (30 sets, daily range): BP systolic 87–134; BP diastolic 49–85; PULSE 71–93; RESP 12–25; TEMP 96.5–98.4; O2SAT 93–100
[~2023-09-03] VITALS: Ht 165.1 cm; Wt 77.1 kg
[2023-09-03] MEDS: ceFOXitin 2GM-NS 100mL ADDvant 100 ML IV ONE (05:30)
[~2023-09-03 07:30] MED LIST changes: +DULO-31 PO; -DULO60CA65 PO; -EMPA25TA PO; +FLUT1BLS4 INH; -LACT1CAP26 PO; +LEVO50TA8 PO; -LEVO75TA7 PO; -PANT20TA18 PO; -TRAZ-251 PO; +TRAZ-256 PO
[2023-09-03] MEDS: famotidine 20mg tablet PO ONE (10:37)
[2023-09-03] MEDS: ringers solution, lacted 1,000 ML IV SCH ×2 (10:37→19:25)
[2023-09-03] MEDS ORDERED: fentaNYL/PF 50MCG/1 ML 2ML syringe ONE ×2 (13:47→15:16)
[2023-09-03] MEDS ORDERED: midazolam 1 mg/ML 2ml injection ONE (13:48)
[2023-09-03] MEDS ORDERED: propofol inj 20 ML IV ONE ×2 (13:48→15:13)
[2023-09-03] MEDS ORDERED: sevoflurane 250ml liquid IH ONE (13:49)
[2023-09-03] MEDS ORDERED: rocuronium 10mg/ml inj IV ONE (15:13)
[2023-09-03] MEDS ORDERED: BUPIVAcaine/PF 2.5mg/ml (0.25%) 10ml vial ONE ×2 (15:56→18:25)
[2023-09-03] MEDS ORDERED: LIDOcaine 1% 30ml preserv. free vial ONE (15:56)
[2023-09-03] MEDS ORDERED: proCHLORperazine 10 MG/2 ml inj IV PRN (16:20)
[2023-09-03] MEDS ORDERED: morphine 4 MG/ML inj SYRINge IV PRN (16:20)
[2023-09-03] MEDS ORDERED: morphine 2 MG/ML inj. syringe IV PRN (16:20)
[2023-09-03] MEDS ORDERED: ringers solution, lacted 1,000 ML IV SCH (16:20)
[2023-09-03] MEDS ORDERED: ondansetron/PF 4mg/2ml inj IV PRN (16:20)
[2023-09-03] MEDS ORDERED: meperidine/PF 25mg/ml syringe IV PRN ×3 (16:20)
[2023-09-03] MEDS: LIDOcaine 1% 30ml preserv. free vial IJ ONE (16:44)
[2023-09-03] MEDS: BUPIVAcaine/PF 2.5mg/ml (0.25%) 10ml vial IJ ONE ×2 (16:46→18:37)
[2023-09-03] MEDS ORDERED: ondansetron/PF 4mg/2ml inj ONE (18:23)
[2023-09-03] MEDS ORDERED: dexamethasone sod phosphate 4mg/ml inj. ONE (18:23)
[2023-09-03] MEDS ORDERED: BUPIVACAINE liposomal/PF 13.3 MG/ML vial IM ONE (18:25)
[2023-09-03] MEDS: BUPIVACAINE liposomal/PF 13.3 MG/ML vial IM ONE (18:36)
[2023-09-03] MEDS ORDERED: acetaminophen 1,000mg/100ml IV 100 ML IV ONE (18:50)
[2023-09-03] MEDS ORDERED: naloxone 0.4 mg/ml inj IV PRN (19:15)
[2023-09-03] MEDS ORDERED: HYDROmorph/NS 0.2 mg/ml PCA 100 ML IV SCH (19:15)
[2023-09-03] MEDS ORDERED: dextrose 50%-water 50ml dispensing syringe IV PRN ×2 (19:20)
[2023-09-03] MEDS ORDERED: glucagon, human recombinant 1mg kit SUBCUT PRN (19:20)
[2023-09-03] MEDS ORDERED: DEXTROSE 15 GM of carb/4 tabs (each vial/BOTTLE has 4 tablets) PO PRN ×2 (19:20)
[2023-09-03] MEDS: HYDROmorph/NS 0.2 mg/ml PCA 100 ML IV SCH (19:59)
[2023-09-03] MEDS: docusate sod 100mg capsule PO SCH (20:00)
[2023-09-03] MEDS: sennosides/docusate sodium tablet PO SCH (20:00)
[2023-09-03] MEDS: ringers solution, lacted 1,000 ML IV ONE (20:22)
[2023-09-03] MEDS: insulin glargine (Lantus) pen - multi-dose SQ SCH (21:00)
[2023-09-03] MEDS: atorvastatin 10mg tablet PO SCH (21:00)
[2023-09-03] MEDS: montelukast 10mg tablet PO SCH (21:00)
[2023-09-03] MEDS: MESSAGE TO PHARMACY PO ONE (22:30)
[2023-09-03] MEDS: normal saline 1000ml 1,000 ML IV SCH (22:30)
[2023-09-03] MEDS: budesonide 0.5mg/2ml UD nebule IH SCH (23:09)
[2023-09-03] MEDS: ipratropium/albuterol 3ml nebule NEB SCH (23:09)
[2023-09-04] VITALS (14 sets, daily range): BP systolic 92–110; BP diastolic 51–60; PULSE 84–103; RESP 14–18; TEMP 97.8–98.2; O2SAT 92–98
[2023-09-04] MEDS ORDERED: non-formulary drug (Levothyroxine Sodium 1 TAB) PO SCH (08:00)
[2023-09-04] MEDS: lisinopril 10 MG tablet PO SCH (09:23)
[2023-09-04] MEDS: duloxetine 30mg CAPSULE.DR PO SCH (09:24)
[2023-09-04] MEDS: levoTHYROXINE 25mcg tablet PO SCH (09:24)
[2023-09-04] MEDS: enoxaparin 40mg/0.4ml syringe SQ SCH (09:25)
[2023-09-04] MEDS: insulin Lispro (HumaLOG) vial - multi-dose SQ SCH (09:29)
[2023-09-05] VITALS (12 sets, daily range): BP systolic 96–113; BP diastolic 51–75; PULSE 84–100; RESP 13–18; TEMP 97.3–99.2; O2SAT 91–98
[2023-09-05 08:12] LABS: BASOPHILS % (AUTO) 0.2 % (0-1); EOSINOPHILS % (AUTO) 0.1 % (0-6); HEMATOCRIT 28.7 % (35.0-45.0); HEMOGLOBIN 9.3 g/dl (12.0-16.0); LYMPHOCYTES % (AUTO) 6.5 % (21-51); MEAN CORPUSCULAR HEMOGLOBIN 25.5 PG (27.0-31.0); MEAN CORPUSCULAR HGB CONC 32.5 g/dL (33.0-36.5); MEAN CORPUSCULAR VOLUME 78.5 FL (78-98); MEAN PLATELET VOLUME 6.7 FL (7.4-10.4); MONOCYTES # (AUTO) 1.4 X10'3 (0-0.9); MONOCYTES % (AUTO) 9.2 % (2-12); NEUTROPHILS # (AUTO) 13.1 X10'3 (1.8-7.7); PLATELET COUNT 333 X10'3 (140-440); RED BLOOD COUNT 3.65 X10'6 (4.20-5.60); RED CELL DISTRIBUTION WIDTH 15.3 % (11.5-14.5); WHITE BLOOD COUNT 15.6 X10'3 (4.5-11.0)
[2023-09-05 08:33] LABS: ALBUMIN 2.5 G/DL (3.4-5.0); ANION GAP 8 (8-16); BLOOD UREA NITROGEN 23 MG/DL (7-18); BUN/CREATININE RATIO 20.4 (10.0-20.0); CALCIUM 8.3 MG/DL (8.5-10.1); CHLORIDE 99 MMOL/L (99-107); CREATININE 1.13 MG/DL (0.40-0.90); GLUCOSE 156 MG/DL (70-104); MAGNESIUM 1.2 MG/DL (1.5-2.4); SODIUM 133 MMOL/L (135-145); TOTAL CARBON DIOXIDE 25.6 MMOL/L (24-32); eCRCL 45 ML/MIN; eGFR 48 ML/MIN
[2023-09-05] MEDS: magnesium hydroxide 30ml (MOM) UD suspension PO SCH (09:53)
[2023-09-05] MEDS ORDERED: HYDROcodone/acetaminophen 10/325mg tab PO PRN (12:25)
[2023-09-05] MEDS ORDERED: HYDROmorph/NS 0.2 mg/ml PCA 100 ML IV SCH (15:00)
[2023-09-05] MEDS ORDERED: magnesium 4gm in 100ml NS 100 ML IV PRN (16:25)
[2023-09-05] MEDS ORDERED: magnesium 2GM in 50ml NS 50 ML IV PRN (16:25)
[2023-09-05] MEDS: magnesium Cl slow-release 64mg tablet PO PRN (17:47)
[2023-09-06] VITALS (12 sets, daily range): BP systolic 108–110; BP diastolic 47–54; PULSE 83–92; RESP 14–18; TEMP 98–98.3; O2SAT 89–96
[2023-09-06] MEDS: metoclopramide 5 mg/ml inj IV SCH (02:23)
[2023-09-06 07:43] LABS: BASOPHILS % (AUTO) 0.1 % (0-1); EOSINOPHILS % (AUTO) 0.2 % (0-6); HEMATOCRIT 26.8 % (35.0-45.0); HEMOGLOBIN 8.8 g/dl (12.0-16.0); LYMPHOCYTES # (AUTO) 1.3 X10'3 (1.1-4.8); LYMPHOCYTES % (AUTO) 9.8 % (21-51); MEAN CORPUSCULAR HEMOGLOBIN 25.8 PG (27.0-31.0); MEAN CORPUSCULAR HGB CONC 32.9 g/dL (33.0-36.5); MEAN CORPUSCULAR VOLUME 78.4 FL (78-98); MONOCYTES % (AUTO) 7.1 % (2-12); NEUTROPHILS # (AUTO) 11.4 X10'3 (1.8-7.7); NEUTROPHILS % (AUTO) 82.8 % (42-75); PLATELET COUNT 312 X10'3 (140-440); RED BLOOD COUNT 3.42 X10'6 (4.20-5.60); RED CELL DISTRIBUTION WIDTH 15.1 % (11.5-14.5); WHITE BLOOD COUNT 13.8 X10'3 (4.5-11.0)
[2023-09-06] MEDS ORDERED: HYDROcodone/acetaminophen 5mg/325mg tablet PO PRN ×2 (13:10)
[2023-09-06] MEDS ORDERED: HYDROmorphone inj. 0.5 MG/0.5 ML DISP.SYRIN IV PRN (13:10)
[2023-09-06] MEDS: PCA WASTE DOCUMENTATION 1 MG ML MC SCH (17:55)
[2023-09-06] MEDS: acetaminophen 325mg tablet PO SCH (20:32)
[2023-09-06] MEDS: HYDROmorphone inj. 0.5 MG/0.5 ML DISP.SYRIN IV PRN (20:33)
[2023-09-07] VITALS (13 sets, daily range): BP systolic 119–134; BP diastolic 58–69; PULSE 70–95; RESP 14–16; TEMP 97.5–98.4; O2SAT 92–98
[2023-09-07 09:52] LABS: BASOPHILS % (AUTO) 0.2 % (0-1); EOSINOPHILS % (AUTO) 0.4 % (0-6); HEMATOCRIT 26.4 % (35.0-45.0); HEMOGLOBIN 8.6 g/dl (12.0-16.0); LYMPHOCYTES # (AUTO) 1.3 X10'3 (1.1-4.8); LYMPHOCYTES % (AUTO) 11.6 % (21-51); MEAN CORPUSCULAR HEMOGLOBIN 25.5 PG (27.0-31.0); MEAN CORPUSCULAR HGB CONC 32.5 g/dL (33.0-36.5); MEAN CORPUSCULAR VOLUME 78.4 FL (78-98); MEAN PLATELET VOLUME 6.8 FL (7.4-10.4); MONOCYTES # (AUTO) 0.8 X10'3 (0-0.9); MONOCYTES % (AUTO) 6.8 % (2-12); NEUTROPHILS # (AUTO) 9.2 X10'3 (1.8-7.7); PLATELET COUNT 373 X10'3 (140-440); RED BLOOD COUNT 3.37 X10'6 (4.20-5.60); RED CELL DISTRIBUTION WIDTH 15.1 % (11.5-14.5); WHITE BLOOD COUNT 11.3 X10'3 (4.5-11.0)
[2023-09-07 10:06] LABS: ALANINE AMINOTRANSFERASE 15 U/L (12-78); ALBUMIN 2.4 G/DL (3.4-5.0); ALBUMIN/GLOBULIN RATIO 0.7 (1.1-1.5); ALKALINE PHOSPHATASE 64 IU/L (46-116); ANION GAP 11 (8-16); ASPARTATE AMINO TRANSFERASE 13 U/L (10-37); BILIRUBIN,TOTAL 0.6 MG/DL (0.1-1.0); BLOOD UREA NITROGEN 9 MG/DL (7-18); BUN/CREATININE RATIO 12.3 (10.0-20.0); CALCIUM 8.5 MG/DL (8.5-10.1); CHLORIDE 97 MMOL/L (99-107); CREATININE 0.73 MG/DL (0.40-0.90); GLUCOSE 186 MG/DL (70-104); POTASSIUM 3.7 MMOL/L (3.5-5.1); SODIUM 132 MMOL/L (135-145); TOTAL CARBON DIOXIDE 24.3 MMOL/L (24-32); eCRCL 69 ML/MIN; eGFR 80 ML/MIN
[2023-09-07] MEDS: magnesium hydroxide 30ml (MOM) UD suspension PO SCH (19:44)
[2023-09-08] VITALS (12 sets, daily range): BP systolic 114–135; BP diastolic 43–68; PULSE 65–98; RESP 15–20; TEMP 97.7–98.1; O2SAT 94–99
[2023-09-08 11:49] LABS: BASOPHILS % (AUTO) 0.4 % (0-1); EOSINOPHILS % (AUTO) 0.5 % (0-6); HEMATOCRIT 26.6 % (35.0-45.0); HEMOGLOBIN 8.8 g/dl (12.0-16.0); LYMPHOCYTES # (AUTO) 1.2 X10'3 (1.1-4.8); LYMPHOCYTES % (AUTO) 11.2 % (21-51); MEAN CORPUSCULAR HEMOGLOBIN 25.9 PG (27.0-31.0); MEAN CORPUSCULAR HGB CONC 33.2 g/dL (33.0-36.5); MEAN PLATELET VOLUME 6.7 FL (7.4-10.4); MONOCYTES # (AUTO) 0.8 X10'3 (0-0.9); MONOCYTES % (AUTO) 7.6 % (2-12); NEUTROPHILS # (AUTO) 8.3 X10'3 (1.8-7.7); NEUTROPHILS % (AUTO) 80.3 % (42-75); PLATELET COUNT 420 X10'3 (140-440); RED BLOOD COUNT 3.41 X10'6 (4.20-5.60); RED CELL DISTRIBUTION WIDTH 15.2 % (11.5-14.5); WHITE BLOOD COUNT 10.4 X10'3 (4.5-11.0)
[2023-09-08 12:27] LABS: ALANINE AMINOTRANSFERASE 15 U/L (12-78); ALBUMIN 2.4 G/DL (3.4-5.0); ALBUMIN/GLOBULIN RATIO 0.6 (1.1-1.5); ALKALINE PHOSPHATASE 69 IU/L (46-116); ANION GAP 9 (8-16); ASPARTATE AMINO TRANSFERASE 11 U/L (10-37); BILIRUBIN,TOTAL 0.5 MG/DL (0.1-1.0); BLOOD UREA NITROGEN 7 MG/DL (7-18); BUN/CREATININE RATIO 10.4 (10.0-20.0); CHLORIDE 97 MMOL/L (99-107); CREATININE 0.67 MG/DL (0.40-0.90); GLUCOSE 175 MG/DL (70-104); POTASSIUM 3.6 MMOL/L (3.5-5.1); SODIUM 133 MMOL/L (135-145); TOTAL CARBON DIOXIDE 27.2 MMOL/L (24-32); TOTAL PROTEIN 6.3 G/DL (6.4-8.2); eCRCL 75 ML/MIN; eGFR 88 ML/MIN
[2023-09-08] MEDS: methylnaltrexone br 12mg/0.6ml inj***SubQ only SQ PRN (13:25)
[2023-09-08] MEDS: HYDROcodone/acetaminophen 5mg/325mg tablet PO PRN (20:29)
[2023-09-09] VITALS (8 sets, daily range): BP systolic 120–145; BP diastolic 67–76; PULSE 77–92; RESP 16–18; TEMP 97.5–98; O2SAT 95–98
[2023-09-10] VITALS (8 sets, daily range): BP systolic 116–137; BP diastolic 63–73; PULSE 77–93; RESP 14–17; TEMP 97.5–98.4; O2SAT 96–98
[2023-09-10 06:42] LABS: BASOPHILS % (AUTO) 0.3 % (0-1); EOSINOPHILS # (AUTO) 0.2 X10'3 (0-0.9); EOSINOPHILS % (AUTO) 1.7 % (0-6); HEMATOCRIT 27.9 % (35.0-45.0); HEMOGLOBIN 9.3 g/dl (12.0-16.0); LYMPHOCYTES # (AUTO) 1.9 X10'3 (1.1-4.8); LYMPHOCYTES % (AUTO) 20.6 % (21-51); MEAN CORPUSCULAR HGB CONC 33.2 g/dL (33.0-36.5); MEAN CORPUSCULAR VOLUME 78.3 FL (78-98); MEAN PLATELET VOLUME 6.3 FL (7.4-10.4); MONOCYTES # (AUTO) 0.9 X10'3 (0-0.9); MONOCYTES % (AUTO) 9.8 % (2-12); NEUTROPHILS # (AUTO) 6.2 X10'3 (1.8-7.7); NEUTROPHILS % (AUTO) 67.6 % (42-75); PLATELET COUNT 543 X10'3 (140-440); RED BLOOD COUNT 3.56 X10'6 (4.20-5.60); WHITE BLOOD COUNT 9.2 X10'3 (4.5-11.0)
[2023-09-10 06:43] LABS: ALANINE AMINOTRANSFERASE 13 U/L (12-78); ALBUMIN 2.5 G/DL (3.4-5.0); ALBUMIN/GLOBULIN RATIO 0.6 (1.1-1.5); ALKALINE PHOSPHATASE 75 IU/L (46-116); ANION GAP 8 (8-16); ASPARTATE AMINO TRANSFERASE 7 U/L (10-37); BILIRUBIN,TOTAL 0.3 MG/DL (0.1-1.0); BLOOD UREA NITROGEN 7 MG/DL (7-18); BUN/CREATININE RATIO 9.6 (10.0-20.0); CALCIUM 9.3 MG/DL (8.5-10.1); CHLORIDE 103 MMOL/L (99-107); CREATININE 0.73 MG/DL (0.40-0.90); GLUCOSE 145 MG/DL (70-104); POTASSIUM 3.7 MMOL/L (3.5-5.1); SODIUM 141 MMOL/L (135-145); TOTAL CARBON DIOXIDE 30.1 MMOL/L (24-32); TOTAL PROTEIN 6.7 G/DL (6.4-8.2); eCRCL 69 ML/MIN; eGFR 80 ML/MIN
[2023-09-11 06:30] VITALS: BP 128/72; PULSE 86; RESP 16; TEMP 98.1; O2SAT 94
[2023-09-11 08:05] VITALS: RESP 16; O2SAT 94
[2023-09-11 08:59] VITALS: PULSE 62; RESP 18; O2SAT 95
[2023-09-11 10:00] VITALS: BP 117/75; PULSE 89; RESP 16; TEMP 98.6; O2SAT 93
[2023-09-11] MEDS ORDERED: HYDR-3964 PO (11:09)
== END 2023-09-11 13:00 | disposition home health service (06) | DRG 329 ==
LOC: PAS IN 09:21 → ORTHO 4S 22:21 → UNDODISIN 09-07 16:15
PROVIDERS: ADMIT Surgery; ATTEND Surgery
PROC: 0DN80ZZ Release Small Intestine, Open Approach (ICD-10-PCS; 2023-09-03)
PROC: 0DJD8ZZ Inspection of Lower Intestinal Tract, Via Natural or Artificial Opening Endoscopic (ICD-10-PCS; 2023-09-03)
PROC: 0DBN0ZZ Excision of Sigmoid Colon, Open Approach (ICD-10-PCS; principal; 2023-09-03 13:49)
DX: Z43.3 Encounter for attention to colostomy (principal); N17.0 Acute kidney failure with tubular necrosis; K57.20 Diverticulitis of large intestine with perforation and abscess without bleeding; K91.89 Other postprocedural complications and disorders of digestive system; K56.7 Ileus, unspecified; E03.9 Hypothyroidism, unspecified; K66.0 Peritoneal adhesions (postprocedural) (postinfection); J44.9 Chronic obstructive pulmonary disease, unspecified; E78.5 Hyperlipidemia, unspecified; Z96.643 Presence of artificial hip joint, bilateral; D72.829 Elevated white blood cell count, unspecified; F32.A Depression, unspecified; E11.22 Type 2 diabetes mellitus with diabetic chronic kidney disease; N18.30 Chronic kidney disease, stage 3 unspecified; Y83.8 Other surgical procedures as the cause of abnormal reaction of the patient, or of later complication, without mention of misadventure at the time of the procedure; Y82.8 Other medical devices associated with adverse incidents; Z79.4 Long term (current) use of insulin; Z79.899 Other long term (current) drug therapy; Y92.89 Other specified places as the place of occurrence of the external cause
CPT/HCPCS: 36415; 45378; 74018; 80048; 80053; 82948; 83036; 83735; 85025; 87081; 94640; 94760; A4618; A6213; A6253; A6258; A6407; A6446; A6449; A7000; C1758; C9290; G0378; J0131; J0694; J1100; J1170; J1650; J1815; J2212; J2250; J2405; J2704; J2765; J3010; J3490; J7030; J7120

== ENCOUNTER 2023-12-06 10:08 | Emergency (ER) | payer MEDICARE, MEDICAID ==
[~2023-12-06] VITALS: Ht 165.1 cm; Wt 71.3 kg
[~2023-12-06 10:08] MED LIST changes: -FLUT1BLS4 INH; -LANTUS SQ; -LEVO50TA8 PO; -NOVLG SQ; +QUET-1 PO; -TRAZ-256 PO; +VANC25SO PO
[2023-12-06 10:09] VITALS: BP 116/62; PULSE 77; RESP 16; TEMP 98.6; O2SAT 100
[2023-12-06 11:51] LABS: ALANINE AMINOTRANSFERASE 23 U/L (12-78); ALBUMIN 4.1 G/DL (3.4-5.0); ALBUMIN/GLOBULIN RATIO 0.9 (1.1-1.5); ALKALINE PHOSPHATASE 85 IU/L (46-116); ANION GAP 9 (8-16); ASPARTATE AMINO TRANSFERASE 12 U/L (10-37); BILIRUBIN,TOTAL 0.3 MG/DL (0.1-1.0); BLOOD UREA NITROGEN 29 MG/DL (7-18); BUN/CREATININE RATIO 35.8 (10.0-20.0); CALCIUM 10.5 MG/DL (8.5-10.1); CHLORIDE 100 MMOL/L (99-107); CREATININE 0.81 MG/DL (0.40-0.90); GLUCOSE 85 MG/DL (70-104); POTASSIUM 4.2 MMOL/L (3.5-5.1); SODIUM 139 MMOL/L (135-145); TOTAL CARBON DIOXIDE 29.7 MMOL/L (24-32); TOTAL PROTEIN 8.8 G/DL (6.4-8.2); eCRCL 62 ML/MIN; eGFR 71 ML/MIN
[2023-12-06 11:56] LABS: BASOPHILS # (AUTO) 0.1 X10'3 (0-0.2); BASOPHILS % (AUTO) 0.6 % (0-1); EOSINOPHILS # (AUTO) 0.2 X10'3 (0-0.9); EOSINOPHILS % (AUTO) 2.1 % (0-6); HEMATOCRIT 34.4 % (35.0-45.0); LYMPHOCYTES # (AUTO) 2.1 X10'3 (1.1-4.8); LYMPHOCYTES % (AUTO) 21.8 % (21-51); MEAN CORPUSCULAR HGB CONC 32.1 g/dL (33.0-36.5); MEAN CORPUSCULAR VOLUME 77.7 FL (78-98); MEAN PLATELET VOLUME 6.7 FL (7.4-10.4); MONOCYTES # (AUTO) 0.7 X10'3 (0-0.9); NEUTROPHILS # (AUTO) 6.6 X10'3 (1.8-7.7); NEUTROPHILS % (AUTO) 68.5 % (42-75); PLATELET COUNT 427 X10'3 (140-440); RED BLOOD COUNT 4.42 X10'6 (4.20-5.60); RED CELL DISTRIBUTION WIDTH 17.5 % (11.5-14.5); WHITE BLOOD COUNT 9.7 X10'3 (4.5-11.0)
[2023-12-06] MEDS: magnesium citrate 296ml oral solution PO ONE (12:15)
[2023-12-06] MEDS: polyethylene glycol 3350 17gm powd pack PO ONE (13:32)
== END 2023-12-06 14:31 | disposition home or self-care (01) ==
LOC: ER 10:09
DX: K59.00 Constipation, unspecified (principal); I10 Essential (primary) hypertension; J45.909 Unspecified asthma, uncomplicated; J44.9 Chronic obstructive pulmonary disease, unspecified; E11.9 Type 2 diabetes mellitus without complications; E05.90 Thyrotoxicosis, unspecified without thyrotoxic crisis or storm; G89.29 Other chronic pain; M54.9 Dorsalgia, unspecified; Z98.51 Tubal ligation status
CPT/HCPCS: 36415; 74018; 80053; 83605; 85025; 99284